=== PATIENT | female | born 1995 | race Caucasian/White ===

== ENCOUNTER 2022-07-20 10:08 | Outpatient (CLI) | payer BC, SELFPAY ==
[2022-07-20 12:29] LABS: Hepatitis B Surface Antigen* Negative (Negative)
[2022-07-20 12:37] LABS: HIV 1/2/P24 Combo Screen* Negative (Negative)
[2022-07-20 12:46] LABS: Hepatitis C Virus Antibody* Negative (Negative)
[2022-07-20 13:23] LABS: Chlamydia DNA Amplified* NOT DETECTED (No Detected); GC DNA Amplified* NOT DETECTED (No Detected)
[2022-07-21 10:38] LABS: Rapid Plasma Reagin (RPR) Non Reactive (Non Reactive)
[2022-07-21 14:12] LABS: Rubella Antibody IgG 35.9 IU/mL
== END 2022-07-20 10:09 | disposition home or self-care (01) ==
PROVIDERS: PCP Family Medicine; Visit Provider Advanced Practice Midwife
DX: Z34.91 Encounter for supervision of normal pregnancy, unspecified, first trimester (principal)
CPT/HCPCS: 76817; 84443; 86592; 86703; 86762; 86787; 86803; 86850; 86900; 86901; 87086; 87340; 87491; 87591

== ENCOUNTER 2022-09-16 15:08 | Outpatient (CLI) | payer BC, SELFPAY | END 2022-09-16 15:09 | disposition home or self-care (01) | PROVIDERS: PCP Family Medicine; Visit Provider Advanced Practice Midwife | DX: Z11.1 Encounter for screening for respiratory tuberculosis (principal); Z77.011 Contact with and (suspected) exposure to lead | CPT/HCPCS: 83655; 86480 ==

== ENCOUNTER 2022-10-14 11:35 | Inpatient (IN) | payer BC, SELFPAY ==
--- NOTE | 2022-10-14 08:45 | CRLHL7_ITS ---
For Patients: As a result of the Century Cures Act, medical imaging exams and procedure reports are released immediately into your electronic medical record. You may view this report before your referring provider. If you have questions, please contact your health care provider. INDICATION: Second trimester follow-up. COMPARISON: 07/20/2022 TECHNIQUE: Real time mejia scale imaging of the fetus was performed. FINDINGS: Intrauterine demise is present. Diffuse subcutaneous edema and cystic structures associated with head/thorax suggesting cystic hygromas, consider Roach syndrome although findings are nonspecific. Cervix is closed measuring 6.8 cm. Fetus is in breech position. No heart tones. Estimated weight 177 grams, less than 3rd percentile. Sonographic age is 17 weeks 2 days with due date calculation of 03/22/2023. The following biometric measurements were obtained: Biparietal diameter: 4.0 cm/18 weeks 0 days less than 30% Head circumference: 14.4 cm/17 weeks 4 days less than 30% Abdominal circumference: 11.6 cm/17 weeks 2 days less than 3rd% Femur length: 2.2 cm/16 weeks 3 days less than 3rd% The HC/AC ratio measures: 1.25 range (1.07-1.29) IMPRESSION: Second trimester demise. Dictated by Laz Blanca MD @ 10/14/2022 11:16:54 AM (Electronically Signed)
[2022-10-14 11:54] VITALS: BP 117/70; PULSE 64
[2022-10-14 12:00] VITALS: BMI 31.1
[2022-10-14 12:01] VITALS: TEMP 36.8
[2022-10-14] MEDS: LOPERAMIDE HCL 2 MG CAPSULE 4 MG PO (12:47)
[2022-10-14] MEDS: miSOPROStoL 200 MCG TABLET VAGINAL ×3 (12:48→20:45)
--- NOTE | 2022-10-14 13:24 | PM.OBHPLI ---
OB - H&P: HPI Labor/Induction History of Present Illness Time Seen by Provider: 12:00 Date Seen: 10/14/22 Chief Complaint: Emily is a 27 year old 2 para 1001 at 20.5 weeks gestation by LMP c/w 1st trimester u/s. She presented this morning to the clinic for her 20 week anatomy scan, at which time a demise was noted. Options reviewed for D & E vs IOL, and she and her partner opted for an IOL. Dr. Eduardo Easton also consulted at that time. Her partner Terrell and mother are at the bedside for support. Both she and Terrell would like any tests available done on Emily and the baby that might give them answers as to why this occurred. They did previously do a [id number], but without SCA testing. Her ultrasound report today is as follows: Intrauterine demise is present. Diffuse subcutaneous edema and cystic structures associated with head/thorax suggesting cystic hygromas, consider Roach syndrome although findings are nonspecific. Cervix is closed measuring 6.8 cm. Fetus is in breech position. No heart tones. Estimated weight 177 grams, less than 3rd percentile. Sonographic age is 17 weeks 2 days with due date calculation of 03/22/2023. IMPRESSION: Second trimester demise. OB Problem List: 1. Anxiety -currently stable on Lexapro 2. Hx of PP thyroiditis -TSH collected at [facility] 3. Exposure to lead during 1870's home renovation in early . -Labs drawn 09/16/22: negative for lead 4. ACL tear right leg, will require surgery to repair. Planned:? Planned ? Allergies: Denies? ? PrePregnancy weight: 155 lbs? ? ? SOCIAL? ? Education: doctorate? ? Work: PT ? ? 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 ? Lives with: Terrell, son? ? Pets: denies? ? Abuse: Denies past? ? Unable to assess current, partner present? ? Special Diet: Denies? ? Ok with a blood transfusion: yes? ? Culture or restorationism beliefs: denies? RISK FACTORS? ? Exercise Times/wk: cross fit 5 days week.? ? ? Depression/Anxiety: anxiety? ? Treatments Currently on Lexapro. ? ? Therapy Denies KEVIN: 0 PHQ 9: 0? ? Seat Belt Use: Routinely ? Smoking: Denies past/present? ? Alcohol/day: Denies while ? ? Caffeine: 1 cup a day ? ? Drug Use: Denies past/present? Planning to breastfeed: yes? Breastfed other children Yes, still at the time of her new ob visit. ? ? Complications with previous : denies? Viability u/s at NOB visit: Ultrasound #1: 8.3 weeks by LMP, 7.6 weeks by u/s? KOMAL: 02/26/23 by? LMP, c/w 1st trimester u/s? ? Chief complaint: Supervision of other normal , antepartum : 2 Para: 1 Indications for induction: intrauterine History of Present Dating criteria: based on LMP (Consistent w/ 1st trimester u/s) care: good care Ultrasounds: normal 1st trimester US and abnormal US findings Labs Blood type: A (+) positive Review of Systems Status of ROS: Reports: 10 or more systems reviewed and unremarkable except as noted in History and below Meds Home Medications and Allergies Home Medications Medication Instructions Recorded Confirmed Type calcium carbonate 600 mg calcium 600 mg PO QDAY 08/18/22 10/14/22 History (1,500 mg) tablet (Calcium) docosahexaenoic acid 200 mg 200 mg PO .QD 08/18/22 10/14/22 History capsule ( DHA) aspirin 81 mg chewable tablet 81 mg PO DAILY 10/14/22 10/14/22 History (Ryan Chewable Low Dose Aspirin) Allergies Allergy/AdvReac Type Severity Reaction Status Date / Time No Known Drug Allergies Allergy Verified 10/05/22 09:00 OB - H&P: Exam Physical Exam: Vital signs: Temp Pulse BP 98.2 F 64 117/70 10/14/22 12:01 10/14/22 11:54 10/14/22 11:54 Constitutional: Constitutional: no acute distress (Tearful at times r/t situation) and cooperative Routine HEENT Exam: Head: Present normocephalic Routine Neck Exam: Neck: Present full ROM Routine Respiratory Exam: Respiratory: Present CTA bilaterally Routine Cardiovascular Exam: Cardiovascular: RRR Routine Exam: External: Present normal external exam Perineum Description: Normal Detailed Labor and Delivery Exam: Patient Gravid: Yes Dilation (cm): 0 (fingertip) Effacement (%): 0 Cervix position: mid Consistency: medium Routine Back/Spine/Pelvis Exam: Back/Spine: full ROM Routine Skin Exam: Present intact, dry and warm Routine Neurological Exam: Present alert and oriented X3 Routine Psychiatric Exam: Present normal affect and normal thought process OB - Problem Based A/P Additional Plan (1) Stillbirth with antepartum : Status: Acute Plan Assessment: at 20.5 weeks by LMP c/w first trimester u/s demise, likely occurred around 17 weeks. A+ blood type Recent ACL tear in right leg Plan: Admit to L & D for IOL. Plan cytotec per demise protocol. Pt candidate for analgesia of choice. Planning epidural for pain management. Blood work, cultures and chromosome testing for Emily and fetus Requesting fetus to pathology for testing, returned for cremation or burial per pt preference. Conscious of positioning of right leg during delivery r/t recent injury. Delivery/Labor/Induction Plan Plan: induction Induction method: per misoprostol protocol (for demise)
[2022-10-14 14:03] LABS: Basophils Absolute Auto 0.01 K/uL (0.00-0.30); Basophils Percent Auto 0.1 % (0.0-3.0); Eosinophils Absolute Auto 0.02 K/uL (0.00-0.50); Eosinophils Percent Auto 0.2 % (0.0-7.0); Hemoglobin* 12.4 gm/dL (12.0-16.0); Immature Granulocytes Abs Auto 0.01 K/uL (0.00-0.30); Immature Granulocytes Pct Auto 0.1 %; Lymphocytes Percent Auto 19.3 % (20-44); Mean Corpuscular HGB Conc 34 gm/dL (32-36); Mean Corpuscular Hemoglobin 31 pg (26-34); Mean Corpuscular Volume 89 fL (80-100); Monocytes Percent Auto 4.7 % (0.0-11.0); Neutrophils Percent Auto 75.6 % (42.0-72.0); Platelet Count* 165 K/uL (140-440); RDW Coefficient of Variation % 12.3 % (11.5-15.5); Red Blood Count 4.06 m/uL (4.00-5.20); White Blood Count* 8.76 K/uL (4.50-11.00)
[2022-10-14 14:11] LABS: Slide Review Reflex No
[2022-10-14 14:59] LABS: Free T4 Free Thyroxine* 0.82 ng/dL (0.70-1.85)
[2022-10-14 15:00] LABS: SARS PCR* Negative SARS-CoV-2 (Negative)
[2022-10-14] MEDS: ACETAMINOPHEN 500 MG TABLET 1000 MG PO ×2 (15:55→20:49)
[2022-10-14 15:57] VITALS: BP 120/71; PULSE 72
[2022-10-14 16:19] LABS: Prothrombin Time 13.8 Seconds
[2022-10-14 16:20] LABS: Fibrinogen* 325 mg/dL (200-450); Partial Thromboplastin Time* 25 Seconds (23-33)
[2022-10-14 16:26] LABS: Amphetamine Screen Urine Negative (Negative); Barbiturate Screen Urine Negative (Negative); Benzodiazepines Screen Urine Negative (Negative); Cannabinoid Screen Urine Negative (Negative); Cocaine Screen Urine Negative (Negative); Methadone Screen Urine Negative (Negative); Methamphetamines Screen Urine Negative (Negative); Opiate Screen Urine Negative (Negative); Oxycodone Screen Urine Negative (Negative); Phencyclidine Screen Urine Negative (Negative); Tricyclic Antidepressant Urine Negative (Negative)
[2022-10-14 18:27] VITALS: BP 112/59; PULSE 77
[2022-10-14 20:49] VITALS: TEMP 36.6
[2022-10-14 21:14] VITALS: BP 121/62; PULSE 65
[2022-10-15] VITALS (53 sets, daily range): BP systolic 79–126; BP diastolic 41–75; PULSE 60–96; RESP 18; TEMP 36.8–37; O2SAT 96–99
[2022-10-15] MEDS: miSOPROStoL 200 MCG TABLET 400 MCG VAGINAL ×2 (01:16→05:05)
[2022-10-15] MEDS: ACETAMINOPHEN 500 MG TABLET 1000 MG PO (05:02)
--- NOTE | 2022-10-15 05:07 | PM.OBPNL ---
Subjective Time Seen by Provider: 05:08 Date Seen: 10/15/22 Narrative: Emily is coping well with mild ctx. She is also doing well mentally. Her mother has been at her bedside for support. Her partner also remains in the room, but is struggling with the situation. He was seen in the ER, but has returned and is now resting. Emily has als been able to rest between doses of cytotec. She does state this time she feels as though her abdomen is starting to move down and feels firmer lower. Denies any pressure to push. She is planning an epidural for pain management, but does not need it at this time. Objective Exam: VSS, afebrile General Appearance:? Calm, cooperative. No acute distress. ? Psychiatric Exam: Alert and oriented, appropriate affect Abdomen: Gravid Ctx: cramping for about an hour after each dose per pt SVE: deferred at this time. Noted to be 1 cm and long at 1 am. Membranes: Intact ? Vital Signs: Last Vital Signs Temp 98.6 F 10/15/22 01:17 Pulse 74 10/15/22 05:04 BP 104/59 L 10/15/22 05:04 Plan Plan: Assessment:?? 27 at 20.5 weeks gestation?by LMP, confirmed with 1st trimester u/s. likely occurred around 17.2 weeks per current u/s measurements. Patient is coping well with the cuurent situation and with the physical discomorts?? Labor type: Induced w/ cytotec? ? ? Plan:?? Continue with routine intrapartum cares as ordered.?? Continue with current dose of 400 mcg cytotec. Epidural for pain management when pt desires. Anticipate progress to vaginal delivery.
[2022-10-15] MEDS: LACTATED RINGERS 1000 ML 1,000 ML 999 ML IV (07:50)
[2022-10-15] MEDS: ROPIVACAINE 0.2% 100 ml 100 ML 10 MG EPIDURAL (08:28)
[2022-10-15] MEDS: LIDOCAINE 2% (PF) 5 ML VIAL EPIDURAL (08:28)
--- NOTE | 2022-10-15 08:37 | P.ANBPRC_ITS ---
[facility] Medical History (Updated 10/14/22 @ 13:55 by Angie Curran CNM) thyroiditis Spontaneous vaginal delivery (08/07/21) Surgical History History of anterior cruciate ligament surgery [place] teeth extracted Family History (Updated 07/20/22 @ 09:59 by Angie Curran CNM) Mother Thyroid disease Sister Denton's disease Social History Smoking Status: Never smoker Little interest or pleasure in doing things: not at all Feeling down, depressed, or hopeless: not at all Meds Home Medications and Allergies Home Medications Medication Instructions Recorded Confirmed Type calcium carbonate 600 mg calcium 600 mg PO QDAY 08/18/22 10/14/22 History (1,500 mg) tablet (Calcium) docosahexaenoic acid 200 mg 200 mg PO .QD 08/18/22 10/14/22 History capsule ( DHA) aspirin 81 mg chewable tablet 81 mg PO DAILY 10/14/22 10/14/22 History (Ryan Chewable Low Dose Aspirin) Allergies Allergy/AdvReac Type Severity Reaction Status Date / Time No Known Drug Allergies Allergy Verified 10/05/22 09:00 Results Labs Labs: Laboratory Results - last 24 hr 10/14/22 10/14/22 10/14/22 11:56 11:56 13:36 WBC RBC Hgb Hct MCV MCH MCHC RDW Coeff of Jagdeep Plt Count Neut % (Auto) Lymph % (Auto) [place] % (Auto) Eos % (Auto) Baso % (Auto) Neut # (Auto) Lymph # (Auto) [place] # (Auto) Eos # (Auto) Baso # (Auto) INR APTT Fibrinogen TSH 1.340 Free T4 0.82 Urine Opiates Screen Negative Ur Oxycodone Screen Negative Urine Methadone Screen Negative Ur Propoxyphene Screen Negative Ur Barbiturates Screen Negative U Tricyclic Antidepress Negative Ur Phencyclidine Scrn Negative Ur Amphetamines Screen Negative U Methamphetamines Scrn Negative U Benzodiazepines Scrn Negative Urine Cocaine Screen Negative U Marijuana (THC) Screen Negative SARS-CoV-2 (PCR) Negative SARS-CoV-2 Blood Type Antibody Screen 10/14/22 10/14/22 10/14/22 13:36 13:36 15:48 WBC 8.76 RBC 4.06 Hgb 12.4 Hct 36.0 MCV 89 MCH 31 MCHC 34 RDW Coeff of Jagdeep 12.3 Plt Count 165 Neut % (Auto) 75.6 H Lymph % (Auto) 19.3 L [place] % (Auto) 4.7 Eos % (Auto) 0.2 Baso % (Auto) 0.1 Neut # (Auto) 6.60 Lymph # (Auto) 1.70 [place] # (Auto) 0.40 Eos # (Auto) 0.02 Baso # (Auto) 0.01 INR 1.00 APTT 25 Fibrinogen 325 TSH Free T4 Urine Opiates Screen Ur Oxycodone Screen Urine Methadone Screen Ur Propoxyphene Screen Ur Barbiturates Screen U Tricyclic Antidepress Ur Phencyclidine Scrn Ur Amphetamines Screen U Methamphetamines Scrn U Benzodiazepines Scrn Urine Cocaine Screen U Marijuana (THC) Screen SARS-CoV-2 (PCR) Blood Type A Positive Antibody Screen NEGATIVE Vital Signs Vital Signs: Last Vital Signs Temp 98.5 F 10/15/22 05:02 Pulse 72 10/15/22 08:36 BP 105/57 L 10/15/22 08:36 Pulse Ox 98 10/15/22 08:33 Weight: 77.111 kg Height: 157.48 cm Anesthesia Procedures Epidural Insertion Patient Location: OB Start Time: 08:10 Stop Time: 08:40 Start Date: 10/15/22 Stop Date: 10/15/22 Reason for Block: procedure for pain Patient Position: sitting Performed By: Jean Carlos Jasmine Preanesthetic Checklist: IV checked, risks and benefits discussed, monitors and equipment checked, pre-op evaluation, timeout performed and anesthesia consent Prep: chlorhexidine gluconate Monitoring: blood pressure monitoring, continuous pulse oximetry and heart rate Approach: midline Vertebral Space: lumbar (1-5) Epidural Technique: MARY saline Needle Type: Tuohy needle Injection Technique: continuous catheter Needle gauge: 17 Needle Length (cm): 10 cm Needle Insertion Depth (cm): 5 Catheter Gauge: 19 Catheter Type: multi-orifice Catheter at skin depth (cm): 10 Test Dose Result: negative Events: other (pt became lighted headed at end of procedure, stated this happened with 1st epidural. Layed pt down stated she felt better. VSS normal. pt did not have increased HR or Blood on Aspiration During test dose)
[2022-10-15] MEDS: miSOPROStoL 200 MCG TABLET 400 MCG PO (09:29)
--- NOTE | 2022-10-15 09:50 | PM.OBPNL ---
Subjective Time Seen by Provider: 09:30 Date Seen: 10/15/22 Narrative: Emily is coping well, now comfortable with an epidural.? She is overall doing well mentally. ? Her mother and have been at her bedside for support.? Her is struggling with the situation but coping well currently. Requested by RN to assess as she thought she felt fetus in vaginal canal. Patient denies pressure or urge to push. Consents to vaginal exam. Objective Exam: General Appearance:? Calm, cooperative.? No acute distress. ? Psychiatric Exam:?Alert and oriented, appropriate affect Abdomen:?Gravid Ctx:?irregular, not felt by patient with epidural SVE:?Complete, fetus breech and body felt in vaginal canal. No descent with small push Membranes:?SROM, clear fluid at 0705 Vital Signs: Last Vital Signs Temp 98.5 F 10/15/22 05:02 Pulse 71 10/15/22 11:57 BP 111/56 L 10/15/22 11:57 Pulse Ox 98 10/15/22 09:13 Pelvic Exam Dilation (cm): 10 Plan Plan: Assessment:?? 27 at 20.5 weeks gestation?by LMP, confirmed with 1st trimester u/s.? likely occurred around 17.2 weeks per current u/s measurements. Patient is coping well wwith epidural Labor type: Induced w/ cytotec? Breech presentation ? Plan:?? Discussed pushing vs expectant management of delivery. Discussed risk of pushing due to position and size/ status of risks associated including head entrapment/decapitation. She strongly desires to hold baby. Plan for expectant management, proceed with next does of cytotec 400 mcg, orally. Continue with routine intrapartum cares as ordered.?? Epidural for pain management, continue until post delivery. Anticipate progress to vaginal delivery, plan to recheck in about 1 hour.
--- NOTE | 2022-10-15 12:33 | P.OBPRC_ITS ---
Procedure Delivery date: 10/15/22 Procedure Done: Global Events: Other (IUFD found at 20 weeks, measuring approximately 17 weeks; Lead Exposure) Intrapartal Events: Labor Induction Induction method: per misoprostol protocol Delivery monitor: none Route of delivery: Laceration description: None Anesthesia type: Epidural Narrative: The patient is a 27 year-old G2 now P1011 admitted on 10/14/2021 at 20 Weeks, 5 Days gestation for induction of labor for Demise diagnosed at her ultrasound yesterday. Fetus is measuring 17 2/7 weeks gestation. Her induction was managed with Cytotec, patient got an epidural early this morning and progressed normally. ? Labor Analgesia:? Epidural ? Pitocin:? No ? Labor onset:?0705 ? Complete:? 0930 am At 1151 a non-viable female delivered in breech presentation over intact perineum via spontaneous vaginal delivery with light maternal pushing efforts.?Cord was clamped and cut immediately.? was placed on maternal chest per her request. appeared edematous, skin was sloughing and scalp appeared to be not intact, no identifiable anomalies noted visually, however baby was likely for some time. No complications with delivery. At time of delivery placenta did not deliver. Expectant management of placenta, delivery occurred on the toilet. Placenta delivered spontaneously and complete at 1353. Difficulty to assess 3 vessel cord due to size, edematous in appearance. ? Mother was stable after delivery. Parents grieving appropriately. ? Lacerations:? Intact ? Blood loss: 25 mL. Blood loss measurement type: EBL ? Sponge and needles counts are correct. [place] Infant Infant Gender: Female presentation: rosalio breech Placental Delivery Description: Spontaneous A Gender: Female OB Vag Delivery Procedures Additional Procedures Procedure Details: demise
--- NOTE | 2022-10-15 17:25 | P.DS_ITS ---
DS: Providers Provider Date Seen: 10/15/22 Date of admission: 10/14/22 11:35 Primary care physician: Sondra Lancaster CNP Admitting Clinician: Angie Curran CNM Attending Physician on discharge: Mickey mcwilliams supervision by Emiliana Espino CNM DS: Diagnosis Discharge Diagnosis (1) Stillbirth with antepartum : Status: Acute (2) Spontaneous vaginal delivery: Status: Acute (3) care and examination immediately after delivery: Status: Acute Exam Const: Vital Signs, click to edit/add: Vital Signs - 24 hr 10/14/22 18:27 10/14/22 21:14 10/15/22 01:12 Temperature Pulse Rate 77 65 68 Pulse Rate [Blood Pressure Cuff] Respiratory Rate Blood Pressure 112/59 L 121/62 114/53 L Blood Pressure [Le ft Arm] Pulse Oximetry 10/15/22 05:04 10/15/22 08:12 10/15/22 08:13 Temperature Pulse Rate 74 82 Pulse Rate [Blood Pressure Cuff] Respiratory Rate Blood Pressure 104/59 L 119/70 Blood Pressure [Le ft Arm] Pulse Oximetry 99 10/15/22 08:18 10/15/22 08:22 10/15/22 08:23 Temperature Pulse Rate 61 Pulse Rate [Blood Pressure Cuff] Respiratory Rate Blood Pressure 87/46 L Blood Pressure [Le ft Arm] Pulse Oximetry 98 96 10/15/22 08:24 10/15/22 08:26 10/15/22 08:28 Temperature Pulse Rate 68 78 81 Pulse Rate [Blood Pressure Cuff] Respiratory Rate Blood Pressure 92/53 L 101/61 106/63 Blood Pressure [Le ft Arm] Pulse Oximetry 99 10/15/22 08:30 10/15/22 08:32 10/15/22 08:33 Temperature Pulse Rate 75 70 Pulse Rate [Blood Pressure Cuff] Respiratory Rate Blood Pressure 111/65 108/56 L Blood Pressure [Le ft Arm] Pulse Oximetry 98 10/15/22 08:34 10/15/22 08:36 10/15/22 08:38 Temperature Pulse Rate 71 72 72 Pulse Rate [Blood Pressure Cuff] Respiratory Rate Blood Pressure 104/56 L 105/57 L 104/56 L Blood Pressure [Le ft Arm] Pulse Oximetry 98 10/15/22 08:40 10/15/22 08:42 10/15/22 08:43 Temperature Pulse Rate 78 95 Pulse Rate [Blood Pressure Cuff] Respiratory Rate Blood Pressure 112/58 L 126/59 L Blood Pressure [Le ft Arm] Pulse Oximetry 98 10/15/22 08:44 10/15/22 08:46 10/15/22 08:48 Temperature Pulse Rate 85 79 70 Pulse Rate [Blood Pressure Cuff] Respiratory Rate Blood Pressure 124/72 118/59 L 106/59 L Blood Pressure [Le ft Arm] Pulse Oximetry 98 10/15/22 08:50 10/15/22 08:52 10/15/22 08:53 Temperature Pulse Rate 67 70 Pulse Rate [Blood Pressure Cuff] Respiratory Rate Blood Pressure 103/54 L 103/55 L Blood Pressure [Le ft Arm] Pulse Oximetry 97 10/15/22 08:54 10/15/22 08:56 10/15/22 08:58 Temperature Pulse Rate 70 70 73 Pulse Rate [Blood Pressure Cuff] Respiratory Rate Blood Pressure 113/58 L 109/56 L 107/57 L Blood Pressure [Le ft Arm] Pulse Oximetry 98 10/15/22 09:00 10/15/22 09:02 10/15/22 09:03 Temperature Pulse Rate 68 75 Pulse Rate [Blood Pressure Cuff] Respiratory Rate Blood Pressure 104/59 L 102/56 L Blood Pressure [Le ft Arm] Pulse Oximetry 98 10/15/22 09:04 10/15/22 09:08 10/15/22 09:13 Temperature Pulse Rate 71 Pulse Rate [Blood Pressure Cuff] Respiratory Rate Blood Pressure 106/57 L Blood Pressure [Le ft Arm] Pulse Oximetry 98 98 10/15/22 09:20 10/15/22 09:35 10/15/22 09:50 Temperature Pulse Rate 75 68 71 Pulse Rate [Blood Pressure Cuff] Respiratory Rate Blood Pressure 104/58 L 105/56 L 92/53 L Blood Pressure [Le ft Arm] Pulse Oximetry 10/15/22 10:05 10/15/22 10:20 10/15/22 10:35 Temperature Pulse Rate 73 73 73 Pulse Rate [Blood Pressure Cuff] Respiratory Rate Blood Pressure 82/47 L 83/49 L 94/53 L Blood Pressure [Le ft Arm] Pulse Oximetry 10/15/22 10:50 10/15/22 11:27 10/15/22 11:57 Temperature Pulse Rate 66 60 71 Pulse Rate [Blood Pressure Cuff] Respiratory Rate Blood Pressure 79/41 L 88/48 L 111/56 L Blood Pressure [Le ft Arm] Pulse Oximetry 10/15/22 13:27 10/15/22 15:48 10/14/22 20:49 Temperature 97.9 F Pulse Rate 71 73 Pulse Rate [Blood Pressure Cuff] Respiratory Rate Blood Pressure 108/61 122/75 Blood Pressure [Le ft Arm] Pulse Oximetry 10/15/22 01:17 10/15/22 05:02 10/15/22 12:11 Temperature 98.6 F 98.5 F 98.3 F Pulse Rate Pulse Rate [Blood Pressure Cuff] 68 Respiratory Rate 18 Blood Pressure Blood Pressure [Le ft Arm] 101/68 Pulse Oximetry 10/15/22 12:26 10/15/22 12:41 10/15/22 12:57 Temperature Pulse Rate Pulse Rate [Blood Pressure Cuff] 70 67 71 Respiratory Rate 18 18 18 Blood Pressure Blood Pressure [Le ft Arm] 110/62 98/68 104/56 L Pulse Oximetry 10/15/22 13:11 10/15/22 13:26 Temperature Pulse Rate Pulse Rate [Blood Pressure Cuff] 71 Respiratory Rate 18 18 Blood Pressure Blood Pressure [Le ft Arm] 108/46 L Pulse Oximetry Documenting provider has reviewed patient's vital signs: yes Common normals: no apparent distress, oriented x3, healthy appearing and alert HENMT: Common normals: normocephalic Head and scalp: normocephalic Eye: Common normals: PERRL Pupil: PERRL Neck & C-Spine: Common normals: full ROM and supple Chest: Common normals: inspection of chest normal Resp: Common normals: normal respiratory effort and clear to auscultation bilaterally Auscultation: clear to auscultation bilaterally Cardio: Common normals: regular rate and regular rhythm Rate: regular rate Rhythm: regular rhythm : OB/external & speculum: Yes perineal/vaginal laceration Laceration: intact Lochia: scant Back & Pelvis: Common normals: thoraco-lumbar ROM normal Extremity: Common normals: normal to inspection and full ROM Neuro: Common normals: oriented x3 Sensorium/orientation: alert Speech: speech normal Psych: Common normals: mental status grossly normal, thought process normal, speech normal and activity/motor behavior normal Speech: normal speech Mood and affect: sad Thought process: normal thought process Skin: Common normals: no rashes or lesions noted General skin exam: no rashes or lesions noted OB - DS: Summary Hospital Course Hospital Course: The patient is a 27 year old G 2 P 1011 at 20 5/7 weeks gestation that was admitted to the Center on 10/14/22 for IOL known IUFD diagnosed in clinic. She had an uncomplicated vaginal delivery. She delivered a non-viable female . the patient has done well. Grieving appropriately, has been holding infant and taking pictures, has family support present, here as well. Pt has received support from AP while here in the hospital. Bleeding appropriate, denies pain, no fever. No concerns, pt desires discharge this evening. Peripartum Data Infant delivery method: Vaginal Laceration description: None Gender: Female (stillborn) A Gender: Female Status at Discharge Functional status at discharge: independent ambulation Overall status at discharge: patient is progressing back to baseline Time Spent with Patient Time attestation: Total time spent providing and/or coordinating discharge services: Discharge Plan Discharge Disposition: Home, Self-Care Date of Admission: 10/14/22 11:35 Attending Provider on Discharge: Emiliana Espino Primary Care Provider: Sondra Lancaster Condition: Stable Anticipated Discharge Date/Time: 10/15/22 18:00 Discharge Medications: New acetaminophen 500 mg Tablet 1,000 mg PO Q6H Qty: 0 0RF ibuprofen 600 mg Tablet 600 mg PO Q6H PRNQty: 30 0RF Continued calcium carbonate [Calcium 600] 600 mg calcium (1,500 mg) tablet 600 mg PO QDAY DHA 200 mg capsule 200 mg PO .QD escitalopram oxalate 20 mg tablet See Rx Instructions .ROUTE .COMPLEX Qty: 90 0RF Dose Instruction: Take 1 tablet by mouth once daily Rx Instructions: Take 1 tablet by mouth once daily Discontinued aspirin [Ryan Chewable Aspirin] 81 mg tablet,chewable 81 mg PO DAILY Discharge Orders: Discharge Order (Routine); Ordered 10/15/22 Ordered By: Emiliana Espino Patient Education: OB Loss Additional Instructions: Discharge instructions were reviewed with the patient including signs and symptoms of infection and home going medications Nothing vaginally for 6 weeks: no tampons or intercourse 2-week visit: for follow up and screen for anxiety/depression. Activity Level: Activity as Tolerated Discharge Diet: Regular Follow Up Appointments: [facility] [Provider Group] Forms: [place] Info Instructions
[2022-10-16 00:21] LABS: Toxoplasma gondii Ab, IgM <3.0 AU/mL (<=7.9)
[2022-10-16 00:39] LABS: CMV Antibody IgG <0.20 U/mL; CMV Antibody IgM <8.0 AU/mL (<=29.9)
[2022-10-16 00:48] LABS: Toxoplasma gondii Ab, IgG <3.0 IU/mL
[2022-10-16 04:16] LABS: Parvovirus B19 Antibody IgG 11.86 IV (<=0.90); Parvovirus B19 Antibody IgM 0.27 IV (<=0.90)
[2022-10-17 02:11] LABS: B2Glycoprotein 1, IgG Antibody <10 SGU (<=20); B2Glycoprotein 1, IgM Antibody <10 SMU (<=20)
[2022-10-17 03:39] LABS: Cardiolipin Antibody IgA <10 APL (<=11); Cardiolipin Antibody IgG <10 GPL (<=14); Cardiolipin Antibody IgM <10 MPL (<=12)
[2022-10-19 11:08] LABS: FACV Specimen Whole Blood; Factor V Leiden (F5) Mutation Negative
[2022-10-21 17:44] LABS: Prothrombin Time 12.9 sec (12.0-15.5); dRVVT Screen 30 sec (33-44)
== END 2022-10-15 19:00 | disposition home or self-care (01) | DRG 560 ==
LOC: OB 11:39
PROVIDERS: Advanced Practice Midwife; Admitting Provider Advanced Practice Midwife; PCP Family Medicine; Visit Provider Advanced Practice Midwife
DX: O36.4XX0 Maternal care for intrauterine death, not applicable or unspecified (principal); O32.1XX0 Maternal care for breech presentation, not applicable or unspecified; F41.9 Anxiety disorder, unspecified; Z3A.20 20 weeks gestation of pregnancy; Z37.1 Single stillbirth
CPT/HCPCS: 01967; 36415; 59200; 76815; 80306; 81229; 81241; 81265; 84439; 84443; 85025; 85384; 85460; 85610; 85613; 85730; 86146; 86147; 86317; 86644; 86645; 86747; 86778; 86850; 86900; 86901; 87070; 87186; 87635; 88184; 88230; 88233; 88262; 88305; 99213; A9270; J2795; J7120

== ENCOUNTER 2022-11-12 07:01 | Day surgery (SDC) | payer BC, SELFPAY ==
[2022-11-12] VITALS (15 sets, daily range): BP systolic 91–108; BP diastolic 47–75; PULSE 48–69; RESP 12–16; TEMP 36.2–36.6; O2SAT 98–100; BMI 28.5
[2022-11-12 07:31] LABS: Ur HCG Qualitative* Negative (Negative)
[2022-11-12] MEDS: LACTATED RINGERS 1000 ML 1,000 ML 100 ML IV (07:40)
[2022-11-12] MEDS: ETHYL CHLORIDE 1 APPLICATION 1 APPLIC TOPICAL (07:40)
[2022-11-12] MEDS: CELECOXIB 200 MG CAPSULE PO (07:45)
[2022-11-12] MEDS: OXYCODONE (CR) 10 MG TAB.ER.12H PO (07:45)
[2022-11-12] MEDS: SODIUM CHLORIDE 0.9 % (FLUSH) 10 ML SYRINGE IVF (07:45)
[2022-11-12] MEDS: ACETAMINOPHEN 500 MG TABLET 1000 MG PO (07:45)
--- NOTE | 2022-11-12 07:53 | SUR.PREOP ---
home covid test negative
[2022-11-12] MEDS: fentaNYL 100 MCG/2 ML inj IVP (08:00)
[2022-11-12] MEDS: MIDAZOLAM HCL 1 MG/ML inj IVP (08:00)
--- NOTE | 2022-11-12 08:07 | SUR.PREOP ---
TIME?OUT:?0755, right knee PT/RN/MDA?VERIFICATION?OF?SURGICAL?SITE,?PROCEDURE,?AND?CONSENT OBTAINED?PRIOR?TO?INVASIVE?PROCEDURE.
[2022-11-12] MEDS: CEFAZOLIN 2 GM INJ IVP (08:40)
--- NOTE | 2022-11-12 10:56 | W.ANESCHARGE ---
Anesthesia Charges Start Date/Time Anesthesia Start Date: 11/12/22 Anesthesia Start Time: 08:31 Stop Date/Time Anesthesia Stop Date: 11/12/22 Anesthesia Stop Time: 11:08
--- NOTE | 2022-11-12 10:56 | W.PM.NB ---
Nerve Block Nerve Block Time Seen by Provider: 08:05 Date Seen: 11/12/22 Type of block requested by surgeon for post-operative analgesia: popliteal Side: right Time out performed: Yes Verification of patient name: Yes Verification of date of : Yes Site marking: site marked Name of person performing procedure: Brown Continuous monitoring Was continuous monitoring of O2 sat, B/P, training project manager, recorded every 15 minutes?: Yes Procedure Checklist: sterile prep, needles and gloves Ultrasound guided. Images saved: Yes Medications given in 5ml increments after negative aspiration: Ropivicaine %: 0.5 mL: 20 Needle gauge: 22 Patient tolerated procedure well: Yes Additional comments: Needle noted adjacent to nerve Block Charges Block Charge (with Pro Fee): Sciatic Nerve Use of Ultrasound Machine for Block: Yes- US Guidance/pain block
--- NOTE | 2022-11-12 10:57 | W.PM.NB ---
Nerve Block Nerve Block Time Seen by Provider: 08:05 Date Seen: 11/12/22 Type of block requested by surgeon for post-operative analgesia: femoral and adductor canal Side: right Time out performed: Yes Verification of patient name: Yes Verification of date of : Yes Site marking: site marked Name of person performing procedure: Brown Continuous monitoring Was continuous monitoring of O2 sat, B/P, ekg monitor tech, recorded every 15 minutes?: Yes Procedure Checklist: sterile prep, needles and gloves Ultrasound guided. Images saved: Yes Medications given in 5ml increments after negative aspiration: Ropivicaine %: 0.5 mL: 20 Needle gauge: 20 Decadron (mg): 10 Precedex (mcg): 25 Patient tolerated procedure well: Yes Additional comments: Needle noted adjacent to nerve Block Charges Block Charge (with Pro Fee): Femoral Nerve Use of Ultrasound Machine for Block: Yes- US Guidance/pain block
--- NOTE | 2022-11-12 11:16 | W.ANESCHARGE ---
Anesthesia Charges Start Date/Time Anesthesia Start Date: 11/12/22 Anesthesia Start Time: 08:31 Stop Date/Time Anesthesia Stop Date: 11/12/22 Anesthesia Stop Time: 11:08
--- NOTE | 2022-11-12 12:03 | PM.ORPRC ---
Procedure Note Date of procedure: 11/12/22 Procedure: PREOPERATIVE DIAGNOSIS: Right knee ACL tear, medial meniscus tear POSTOPERATIVE DIAGNOSIS: Right knee ACL tear, medial meniscus tear NAME OF OPERATION: Right knee endoscopic ACL reconstruction using patellar tendon autograft SURGEON: Asael Nicholas MD CHIP BIN OPERATOR: Smiley uNno PA-C, MOSES Poon ANESTHESIA: Spinal ESTIMATED BLOOD LOSS: 20 mL COMPLICATIONS: None SPECIMENS: None DRAINS: None PREOPERATIVE ANTIBIOTICS: Ancef 2 grams INDICATIONS: The patient is a 27-year-old female with a history of right knee injury consisting of the above diagnoses. Operative intervention was offered. The risks, benefits and expected outcomes were discussed in detail. These included but were not limited to: Infection, bleeding, injury to blood vessel or nerve, venous thromboembolism. All questions were answered to their satisfaction. Use of an special education teaching assistant was necessary throughout the case for patient positioning and safety, soft tissue retraction and closure. PROCEDURE: A femoral nerve and popliteal block were placed by Anesthesia. Spinal anesthesia was administered. The patient was placed supine on the operating room table. The right lower extremity was prepped and draped in the usual sterile fashion. The limb was exsanguinated with the Andi bandage. The pneumatic tourniquet was inflated to 300 mmHg. A standard anterolateral portal was established. The arthroscope was introduced. The working portal was established anteromedially. Diagnostic arthroscopy was performed with findings as follows: The suprapatellar pouch is normal. Articular surface on the patella is normal. Articular surface on the trochlea is normal. The medial gutter is normal. The medial compartment shows normal articular cartilage on the medial femoral condyle and medial tibial plateau. The medial meniscus appears to be fully healed. The root is intact and stable to probing. The notch shows the ACL to be completely torn. The lateral compartment shows normal articular cartilage on the lateral femoral condyle and lateral tibial plateau. The lateral meniscus is normal. The lateral gutter is normal. Attention was then turned to the graft harvest. A longitudinal incision was made just medial to midline over the patellar tendon. Subcutaneous dissection was sharply taken through the peritenon which was carefully elevated medially and laterally. The special education teaching assistant retracted the soft tissues to protect the patellar tendon. The central 10 mm of the patellar tendon with a 10 x 20 mm bone block from the patella and a 10 x 25 mm bone block from the tibia was harvested with the saw and osteotomes. It was taken to the back table for preparation by the special education teaching assistant. The arthroscope was reintroduced into the knee. The ACL stump was debrided with the shaver. The notchplasty was performed with the bur. The ctto-yan-wca position was identified. The knee was placed in hyperflexion by the special education teaching assistant and the 6 mm vtva-bqz-qiy guide was placed through the anteromedial portal. The Beath pin was drilled out the lateral thigh. The 10 mm low-profile Reamer was used to a depth of 25 mm. A loop of suture was left in the femoral tunnel. Bone debris was evacuated with the shaver. Attention then turned to the tibial tunnel. The tibial guide was placed in the center of the ACL tibial footprint. The guide pin was drilled the coring Reamer was used. This autograft bone was used to back fill the patellar and tibial donor sites. The ACL graft was pulled into the knee by the special education teaching assistant, using our previously placed suture and was placed in the femoral socket. The tap was used and a 7 x 20 mm BioComposite interference screw was used on the femoral side. This provided excellent fixation. We then tensioned the graft and cycled the knee. The tap was used on the tibial side and a 8 x 20 mm BioComposite interference screw was placed on the tibial side. This has excellent purchase as well. The graft was then inspected. It was found to be under physiologic tension. There is no roof impingement. Arthroscopic Sabrina's is a solid grade 1 with a firm endpoint. The patellar tendon was closed with a running 0 Vicryl suture. The special education teaching assistant closed the subcutaneous tissues with a 2-0 Vicryl and a running 3-0 Monocryl. Glue was used to seal the skin. A dry dressing Paul stocking and T scope brace were applied by the special education teaching assistant. The tourniquet was released. Sponge and needle counts were correct x 2. The patient tolerated the procedure well. There were no apparent complications. They were carefully transferred to the hospital bed and taken to the postanesthesia care unit in satisfactory condition. PLAN: The patient will be discharged to home. They may weightbear as tolerates. Range of motion will be unrestricted. They will follow up in physical therapy in 48-72 hours for wound check and dressing change. They will follow up in the office in 2 weeks with a supine AP and lateral view of the knee prior to being seen.
== END 2022-11-12 13:34 | disposition home or self-care (01) ==
PROVIDERS: Anesthesiology; PCP Family Medicine; Visit Provider Orthopaedic Surgery
PROC: (CPT 29888; principal; 2022-11-12 08:30)
DX: S83.512A Sprain of anterior cruciate ligament of left knee, initial encounter (principal)
CPT/HCPCS: 29888; 01400; 76942; 81025; A9270; C1713; J0690; J1100; J1200; J2250; J2405; J2704; J2795; J3010; J3475; J3490; J7120; L1833

== ENCOUNTER 2023-04-05 08:20 | Outpatient (CLI) | payer BC, SELFPAY | END 2023-04-05 08:21 | disposition home or self-care (01) | LOC: NFLDREF 11:04 | PROVIDERS: PCP Family Medicine; Referring Provider Family Medicine; Visit Provider Advanced Practice Midwife | DX: Z34.90 Encounter for supervision of normal pregnancy, unspecified, unspecified trimester (principal) | CPT/HCPCS: 84702 ==

== ENCOUNTER 2023-04-07 08:05 | Outpatient (CLI) | payer BC, SELFPAY | END 2023-04-07 08:06 | disposition home or self-care (01) | LOC: NFLDREF 11:45 | PROVIDERS: PCP Family Medicine; Referring Provider Family Medicine; Visit Provider Advanced Practice Midwife | DX: Z34.90 Encounter for supervision of normal pregnancy, unspecified, unspecified trimester (principal) | CPT/HCPCS: 84702 ==

== ENCOUNTER 2023-05-04 07:55 | Outpatient (CLI) | payer BC, SELFPAY ==
--- NOTE | 2023-05-04 08:15 | CRLHL7_ITS ---
For Patients: As a result of the Century Cures Act, medical imaging exams and procedure reports are released immediately into your electronic medical record. You may view this report before your referring provider. If you have questions, please contact your health care provider. INDICATION: First trimester scan, establish dates. COMPARISON: None. TECHNIQUE: Real-time mejia-scale imaging of the pelvis was performed. FINDINGS: Sonographic imaging demonstrates a single living intrauterine gestation. The embryo demonstrates a regular cardiac rate measuring 166 beats per minute. The embryo`s crown-rump length measurement of 2.5 cm corresponds to a gestational age of 9 weeks 1 day with a sonographic due date of 12/06/2023. There is a normal-appearing yolk sac. There are no gross abnormalities noted within the embryo at this early state of development. The gestational sac has a normal appearance. There is no evidence of a perigestational hemorrhage. The amount of fluid within the sac appears appropriate for gestational age. The cervix is closed. The myometrium appears normal. The ovaries are of normal size. Corpus luteal cyst left ovary. There are no suspicious fluid collections noted in the cul-de-sac. IMPRESSION: Normal first trimester OB ultrasound exam. Gestational age calculated at 9 weeks 1 day with a sonographic due date of 12/06/2023. Dictated by Laz Blanca MD @ 05/04/2023 10:13:43 AM (Electronically Signed)
== END 2023-05-04 07:56 | disposition home or self-care (01) ==
LOC: US 07:56
PROVIDERS: PCP Family Medicine; Visit Provider Advanced Practice Midwife
DX: Z34.91 Encounter for supervision of normal pregnancy, unspecified, first trimester (principal); Z3A.09 9 weeks gestation of pregnancy
CPT/HCPCS: 76817; 86703; 86803; 86850; 87086; 87340

== ENCOUNTER 2023-05-04 08:43 | Outpatient (CLI) | payer BC, SELFPAY | END 2023-05-04 08:44 | disposition home or self-care (01) | PROVIDERS: PCP Family Medicine; Visit Provider Advanced Practice Midwife | DX: Z34.91 Encounter for supervision of normal pregnancy, unspecified, first trimester (principal); Z3A.09 9 weeks gestation of pregnancy | CPT/HCPCS: 86592; 86703; 86762; 86787; 86803; 86850; 87086; 87340 ==

== ENCOUNTER 2023-07-01 09:21 | Outpatient (CLI) | payer BC, SELFPAY | END 2023-07-01 09:22 | disposition home or self-care (01) | LOC: NFLDREF 09:22 | PROVIDERS: PCP Family Medicine; Visit Provider Advanced Practice Midwife | DX: Z34.92 Encounter for supervision of normal pregnancy, unspecified, second trimester (principal); Z3A.17 17 weeks gestation of pregnancy | CPT/HCPCS: 84443 ==

== ENCOUNTER 2023-09-17 10:47 | Outpatient (CLI) | payer BC, SELFPAY | END 2023-09-17 10:48 | disposition home or self-care (01) | LOC: NFLDREF 09-19 05:18 | PROVIDERS: PCP Family Medicine; Referring Provider Family Medicine; Visit Provider Advanced Practice Midwife | DX: Z34.91 Encounter for supervision of normal pregnancy, unspecified, first trimester (principal) | CPT/HCPCS: 86592 ==

== ENCOUNTER 2023-10-28 09:24 | Outpatient (CLI) | payer BC, SELFPAY | END 2023-10-28 09:25 | disposition home or self-care (01) | PROVIDERS: PCP Family Medicine; Visit Provider Advanced Practice Midwife | DX: O90.5 Postpartum thyroiditis (principal); Z77.011 Contact with and (suspected) exposure to lead | CPT/HCPCS: 83655; 84443 ==

== ENCOUNTER 2023-11-10 09:22 | Outpatient (CLI) | payer BC, SELFPAY ==
[2023-11-11 13:47] LABS: Strep B DNA Probe Positive (Negative)
[2023-11-11 14:03] LABS: Strep B Susceptibility Needed? No
== END 2023-11-10 09:23 | disposition home or self-care (01) ==
PROVIDERS: PCP Family Medicine; Visit Provider Registered Nurse
DX: Z34.83 Encounter for supervision of other normal pregnancy, third trimester (principal)
CPT/HCPCS: 87081; 87653

== ENCOUNTER 2023-12-04 18:33 | Inpatient (IN) | payer BC, SELFPAY ==
[2023-12-04] VITALS (11 sets, daily range): BP systolic 99–205; BP diastolic 52–146; PULSE 58–196; RESP 20; TEMP 36.4–36.7; O2SAT 96; BMI 36.8
[2023-12-04] MEDS: AMPICILLIN 2 GM in 0.9 % SODIUM CHLORIDE Mini-bag 100 ML IVPB (18:56)
[2023-12-04] MEDS: LACTATED RINGERS 1000 ML 1,000 ML 125 ML IV (18:58)
[2023-12-04 19:08] LABS: Eosinophils Absolute Auto 0.02 K/uL (0.00-0.50); Eosinophils Percent Auto 0.3 % (0.0-7.0); Immature Granulocytes Abs Auto 0.02 K/uL (0.00-0.30); Immature Granulocytes Pct Auto 0.3 %; Lymphocytes Absolute Auto 1.56 K/uL (0.90-2.90); Lymphocytes Percent Auto 24.7 % (20-44); Mean Corpuscular HGB Conc 34 gm/dL (32-36); Mean Corpuscular Hemoglobin 31 pg (26-34); Mean Corpuscular Volume 91 fL (80-100); Monocytes Percent Auto 10.3 % (0.0-11.0); Neutrophils Absolute Auto 4.07 K/uL (1.7-7.0); Neutrophils Percent Auto 64.4 % (42.0-72.0); Platelet Count* 145 K/uL (140-440); RDW Coefficient of Variation % 12.2 % (11.5-15.5); Red Blood Count 3.86 m/uL (4.00-5.20); White Blood Count* 6.32 K/uL (4.50-11.00)
[2023-12-04 19:12] LABS: Slide Review Reflex No
--- NOTE | 2023-12-04 19:40 | P.LDBA_ITS ---
Documented by User: Diego Barbosa 12/04/23 20:12 Subjective History of Present Illness Narrative: Patient is being admitted to Labor and Delivery for spontaneous onset of labor. She is a 28 year old at weeks gestation. She started having irregular yahir last night. At 5 pm today her contractions started getting closer and more painful. Her course is complicated by Anxiety, shingles in and hx loss at 17 weeks. Her full history and physical was dictated by Carmen Orourke CNM on 11/19/23 see this for details. GBS positive. She plans on having waterbirth. She has her partner, mother and dolly operator at bedside for labor support. Specific Issues/Plans H&P done by Carmen Orourke CNM on 11/19/23 1. Hx of a loss at 17 wks, noted at 20 wk anatomy scan. Baby noted to have Turners -[id number] w/ SCA testing done at [facility] -Aware she can be seen for increased visits if needed for FHTs for reassurance -Level II w/ MPP: WNL, echo WNL. No further follow up needed 2. Anxiety -Currently stable on 20 mg lexapro. Increased to 30 mg at 34 wks -has been seeing a grief counselor. 3. Hx of PP thyroiditis -TSH done at 17 weeks: 1.38 4. Covid positive 08/01/23. Out of quarantine 08/12 5. Shingles infection in resolved at 37 wks 6. GBS POSITIVE Recommend antibiotics in labor Flu Vaccine: 07/01/23 Covid: Tdap: 09/30/23 RSV declines OB - Problem Based A/P Additional Plan (1) Pain during labor: Status: Acute (2) 39 weeks gestation of : Status: Acute (3) History of loss: Problem details: at 17.1 weeks gestation Status: Acute Plan ASSESSMENT:? 28 yr G 3 P1 at 39.3 weeks gestation? complicated by:?Anxiety, Shingles in , hx of loss at 17 wk Labor type: Spontaneous, Active labor? Category 1 Labor complicated by: n/a ? GBS:positive ? PLAN:? 1. Routine intrapartum cares as ordered. Continue with expectant management? 2. Monitoring per policy, intermittent 3. Planning unmedicated . Desires water . Consent signed. Hep C negative. Candidate for analgesia of choice.?? 4. Patient encouraged to reposition and ambulate to promote physiologic labor and .? 5. GBS prophylaxis initiated for GBS positive status. Will treat with antibiotics per protocol 6. Anticipate ? Delivery/Labor/Induction Plan Plan: expectant management OB Result Labs Blood Type: A (+) positive OB Exam Physical Exam Vital signs: Pulse BP 58 L 121/79 12/04/23 19:36 12/04/23 19:36 Narrative: Vitals Reviewed Constitutional:? Alert and oriented x3 HEENT:? Normocephalic, atraumatic Neck:? Supple Lungs:? Clear to auscultation bilaterally Heart:? Regular rate and rhythm, no murmur, rub or gallop Abdomen:? Soft, nontender, and gravid. Vertex by Bret's, confirmed with cervical exam. Extremities:? No edema or erythema Cervix: 6 cm/80%/0 station per RN NST: 130 bpm/Moderate variability/accelerations/ no decelerations/3-4 contractions Detailed Labor and Delivery Exam Patient Gravid: Yes Documented by User: Emiliana Espino CNM 12/04/23 21:02 Subjective History of Present Illness Narrative: Patient is being admitted to Labor and Delivery for spontaneous onset of labor. She is a 28 year old at 39.5 weeks gestation. She started having irregular yahir last night. At 5 pm today her contractions started getting closer and more painful. Her course is complicated by Anxiety, shingles in and hx loss at 17 weeks. Her full history and physical was dictated by Carmen Orourke CNM on 11/19/23 see this for details. GBS positive. She plans on having waterbirth. She has her partner, mother and dolly operator at bedside for labor support. Specific Issues/Plans H&P done by Carmen Orourke CNM on 11/19/23 1. Hx of a loss at 17 wks, noted at 20 wk anatomy scan. Baby noted to have Turners -[id number] w/ SCA testing done at [facility] -Aware she can be seen for increased visits if needed for FHTs for reassurance -Level II w/ MPP: WNL, echo WNL. No further follow up needed 2. Anxiety -Currently stable on 20 mg lexapro. Increased to 30 mg at 34 wks -has been seeing a grief counselor. 3. Hx of PP thyroiditis -TSH done at 17 weeks: 1.38 4. Covid positive 08/01/23. Out of quarantine 08/12 5. Shingles infection in resolved at 37 wks 6. GBS POSITIVE Recommend antibiotics in labor Flu Vaccine: 07/01/23 Covid: Tdap: 09/30/23 RSV declines OB - Problem Based A/P Additional Plan (1) Pain during labor: Status: Acute (2) 39 weeks gestation of : Status: Acute (3) History of loss: Problem details: at 17.1 weeks gestation Status: Acute Plan ASSESSMENT:? 28 yr G 3 P1 at 39.3 weeks gestation? complicated by:?Anxiety, Shingles in , hx of loss at 17 wk Labor type: Spontaneous, Active labor? Category 1 Labor complicated by: n/a ? GBS:positive ? PLAN:? 1. Routine intrapartum cares as ordered. Continue with expectant management? 2. Monitoring per policy, intermittent 3. Planning unmedicated . Desires water . Consent signed. Hep C negative. Candidate for analgesia of choice.?? 4. Patient encouraged to reposition and ambulate to promote physiologic labor and .? 5. GBS prophylaxis initiated for GBS positive status. Will treat with antibiotics per protocol 6. Anticipate ? I,?Emiliana Espino APRN, CNKei, was present for visit and have reviewed and agree with documentation by the Certified Nurse Midwifery Student. OB Exam Physical Exam Narrative: Vitals Reviewed Constitutional:? Alert and oriented x3 HEENT:? Normocephalic, atraumatic Neck:? Supple Lungs:? Clear to auscultation bilaterally Heart:? Regular rate and rhythm, no murmur, rub or gallop Abdomen:? Soft, nontender, and gravid. Vertex by Bret's, confirmed with cervical exam. Extremities:? No edema or erythema Cervix: 6 cm/80%/0 station per RN NST: 130 bpm/Moderate variability/accelerations/no decelerations/3-4 contractions
[2023-12-04] MEDS: ONDANSETRON 2 MG/ML inj 4 MG IV (21:20)
[2023-12-04] MEDS: SODIUM CHLORIDE 0.9 % (FLUSH) 10 ML SYRINGE IVF (21:22)
[2023-12-04] MEDS: OXYTOCIN 10 UNIT/ML INJ IM (22:16)
[2023-12-04] MEDS: IBUPROFEN 600 MG TABLET PO (22:20)
[2023-12-04] MEDS: lidocaine HCL 2 % JELLY (TOP) STERILE 6 ML TOPICAL (22:32)
[2023-12-04] MEDS: LIDOCAINE 1 % PF 30 ML INJECTION (22:32)
--- NOTE | 2023-12-04 23:04 | W.PM.OBVAGDE ---
Documented by User: Diego Barbosa 12/05/23 00:01 OB Procedure Vag Delivery Mother Details Mother Details: The patient is a 28 year-old, 3, Para 1, admitted on 12/04/23 at 39.5 wks gestation. : 3 Para: 2 Weeks Gestation: 39.5 Admission Date: 12/04/23 Additional Details Amniotic Membrane Status: SROM Amniotic Membrane Rupture Date: 12/04/23 Amniotic Membrane Rupture Time: 21:50 Amniotic Membrane Fluid Description: Meconium Stained Analgesia/Anesthesia Type: Nitrous Oxide Waterbirth: Yes Pitcoin: No Intrapartal Events: None Labor Onset: 18:25 Complete: 21:43 Pushin:43 Heart: heart tones during second stage were reassuring by doppler Delivery Details Delivery Date: 12/04/23 Delivery Time: 21:59 Route of delivery: Gender: Female Infant Viability: Alive; Heart Rate Present Position at Delivery: OA Delivery Details: Patient was admitted for spontaneous onset of labor and progressed normally with no augmentation. She SROM with light meconium @ 2150. She labored well in the tub and had a waterbirth. She was complete and started spontaneously pushing at 2143. of a viable female in kneeling position at 2159. Vertex delivered OA. No nuchal cord or shoulder dystocia was identified. Body delivered easily and without incident. Infant passed to mothers abdomen with a vigorous cry. Cord was clamped and cut at > 5 minutes. APGARS were 7 at one minute and 8 at five minutes respectively. Mouth was bulb suctioned. Intact placenta with a 3 vessel cord delivered spontaneously at 2223. Placenta was sent to pathology for hx of loss at 17 wks. Fundus firm. Bilateral periureteral and 1st degree perineal lacerations were identified. Repaired left periureteral laceration with 4.0 Vicryl in typical fashion.The right Periureteral laceration was smaller and not bleeding, hence not repaired. The 1st Perineal laceration was also not repaired due to good hemostasis. QBL 200 cc and EBL 200. Mother and baby stable; mother plans to breastfeed. Infant weight pending. GBS positive and not fully treated. 1 Minute Interval Total Score: 7 5 Minute Interval Total Score: 8 Additional Details Shoulder Dystocia: No Placenta Delivery Time: 22:23 Placental Delivery Description: Spontaneous Delivery repair: Vicryl Procedure Done: Global Blood Loss: 400 Laceration: Periurethral - 1st Degree (1st degree perineal laceration.) Episiotomy Description: None Blood Loss Measurement Type: QBL (QBL =200. HMS=193) Bakri Used: No Sponge/Need Count Correct: Yes Cord Vessel Description: 3 Vessels Event Summary Status: Mother and infant were stable after delivery. Disposition: floor Documented by User: Emiliana Espino CNM 12/05/23 00:57 OB Procedure Vag Delivery Additional Details Heart: heart tones during second stage were reassuring by doppler with intermittent auscultation. Delivery Details Delivery Details: Patient was admitted for spontaneous onset of labor and progressed normally with no augmentation. She SROM with light meconium @ 2150. She labored well in the tub and had a waterbirth. She was complete and started spontaneously pushing at 2143. of a viable female in kneeling position at 2159. Vertex delivered OA. No nuchal cord or shoulder dystocia was identified. Body delivered easily and without incident. Infant passed to mothers abdomen with a vigorous cry. Cord was clamped and cut at > 5 minutes. APGARS were 7 at one minute and 8 at five minutes respectively. Mouth was bulb suctioned. Intact placenta with a 3 vessel cord delivered spontaneously at 2223. Placenta was sent to pathology for hx of loss at 17 wks. Fundus firm. Bilateral periureteral and 1st degree perineal lacerations were identified. Repaired left periureteral laceration with 4.0 Vicryl in typical fashion.The right Periureteral laceration was smaller and not bleeding, hence not repaired. The 1st Perineal laceration was also not repaired due to good hemostasis. QBL 200 cc and EBL 200. Mother and baby stable; mother plans to breastfeed. weight pending. GBS positive and not adequately treated. I,?Emiliana Espino APRN, CNM, was present for visit and have reviewed and agree with documentation by the Certified Nurse Midwifery Student. Additional Details Laceration: Periurethral - 1st Degree (& 1st degree perineal laceration.)
[2023-12-05] VITALS (8 sets, daily range): BP systolic 106–130; BP diastolic 55–83; PULSE 64–184; RESP 16; TEMP 36.6–37.2; O2SAT 96
[2023-12-05] MEDS: DOCUSATE SODIUM 100 MG CAPSULE PO (08:42)
[2023-12-05] MEDS: ESCITALOPRAM 10 MG TABLET PO (09:16)
[2023-12-05] MEDS: ESCITALOPRAM 20 MG TABLET PO (09:17)
--- NOTE | 2023-12-05 10:33 | P.OBPN_ITS ---
OB - PN:Subj Subjective Date Seen: 12/05/23 Narrative: Emily is a 28 y.o. who was admitted to L & D for spontaneous onset of labor. ?She had an uncomplicated NVD.?The patient feels well. ?The pain is well controlled with current medications. ?She has no new complaints. ?She is breast feeding and reports things are going well.? the patient has done well.? Vitals have been stable.? She has remained afebrile.? Has a good appetite, is tolerating a general diet. ?She is voiding without difficulty.? She is passing gas and has not had a bowel movement.? She is ambulating and denies any dizziness.? Has Small amount of rubra lochia. OB - PN: Obj Exam Physical Exam: Vital signs: Temp Pulse Resp BP Pulse Ox O2 Del Method 98.9 F 64 16 115/71 96 Room Air 12/05/23 08:35 12/05/23 08:35 12/05/23 08:35 12/05/23 08:35 12/05/23 08:35 12/05/23 08:35 Narrative: GENERAL APPEARANCE:? normal affect, alert, no distress MOOD:? appropriate CHEST:? clear to auscultation HEART:? regular rate and rhythm ABDOMEN:? soft, non-tender the uterine fundus is At Umbilicus, Midline and is appropriate for the stage of recovery. PERINEUM:? mild edema of the perineum. Periurethral lacerations healing well. EXTREMITIES:? normal and no edema OB - PN: Obj Data Labs Labs: Laboratory Results - last 24 hr 12/04/23 18:55 WBC 6.32 RBC 3.86 L Hgb 12.0 Hct 35.0 MCV 91 MCH 31 MCHC 34 RDW Coeff of Jagdeep 12.2 Plt Count 145 Neut % (Auto) 64.4 Lymph % (Auto) 24.7 Hooker % (Auto) 10.3 Eos % (Auto) 0.3 Baso % (Auto) 0.0 Neut # (Auto) 4.07 Lymph # (Auto) 1.56 Hooker # (Auto) 0.70 Eos # (Auto) 0.02 Baso # (Auto) 0.00 Abs Immat Gran (auto) 0.02 Imm/Tot Granulo (auto) 0.3 Blood Type A Positive Antibody Screen NEGATIVE OB - PN: A/P Delivery Assessment and Plan (1) care and examination immediately after delivery: Status: Acute (2) Lactating mother: Status: Acute Plan day: 1 Plan: routine care Comments: Routine care Lactating mother, may see if desired. Anticipate discharge tomorrow.
[2023-12-06] MEDS: IBUPROFEN 600 MG TABLET PO (06:32)
[2023-12-06 07:38] VITALS: BP 107/71; PULSE 64; RESP 18; TEMP 36.9; O2SAT 97
[2023-12-06] MEDS: ESCITALOPRAM 20 MG TABLET PO (07:39)
[2023-12-06] MEDS: ESCITALOPRAM 10 MG TABLET PO (07:40)
[2023-12-06] MEDS: DOCUSATE SODIUM 100 MG CAPSULE PO (07:42)
--- NOTE | 2023-12-06 08:03 | P.DS_ITS ---
DS: Providers Provider Date Seen: 12/06/23 Date of admission: 12/04/23 18:33 Primary care physician: Sondra Lancaster CNP Admitting Clinician: Emiliana Espino CNM Attending Physician on discharge: Emiliana Espino CNM Date of Discharge: 12/06/23 DS: Diagnosis Discharge Diagnosis (1) care following vaginal delivery: Status: Acute (2) Lactating mother: Status: Acute Exam Narrative: Exam Narrative: GENERAL APPEARANCE:? normal affect, alert, no distress? MOOD:? appropriate? CHEST:? clear to auscultation and percussion? HEART:? regular rate and rhythm? ABDOMEN:? soft, non-tender the uterine fundus is U/2 and is appropriate for the stage of recovery.? PERINEUM:? mild edema of the perineum, there is a 1st degree that is healing well.? EXTREMITIES:? normal and no edema? Patient has no complaints? No active bleeding?? Doing well? She is requesting discharge home.? Const: Vital Signs, click to edit/add: Vital Signs - 24 hr 12/05/23 08:35 12/05/23 12:13 12/05/23 15:45 Temperature 98.9 F Pulse Rate [Pulse Oximeter] 64 77 65 Respiratory Rate 16 16 16 Blood Pressure [Le ft Arm] 115/71 116/70 117/73 Pulse Oximetry 96 96 96 Oxygen Delivery Me thod Room Air Room Air Room Air 12/05/23 20:01 12/05/23 22:31 12/06/23 07:38 Temperature 98.2 F 98.4 F Pulse Rate [Pulse Oximeter] 73 71 64 Respiratory Rate 16 16 18 Blood Pressure [Le ft Arm] 111/70 130/83 107/71 Pulse Oximetry 96 97 Oxygen Delivery Me thod Room Air Room Air Room Air OB - DS: Summary Hospital Course Hospital Course: The patient is a 28 year old G 3 P 2 at 39.5 weeks gestation that was admitted to the Center on 12/04/23 for labor. She had an uncomplicated vaginal delivery. She delivered a viable female . She is breast feeding and feels that it is going well. the patient has done well. Pain is well controlled with current medications.? She has no new complaints.? Urinary output is adequate and she is voiding without difficulty.? Has a good appetite, is tolerating a general diet, is passing flatus, and has not had a bowel movement.? Has scant amount of rubra lochia.? She is ambulating well.?She is planning Natural Family Planning and condoms for contraception. Peripartum Data Infant delivery method: Vaginal Laceration description: Periurethral - 1st Degree complications: none [place] Gender: Female Infant Discharge Plan: Home Status at Discharge Functional status at discharge: independent ambulation Overall status at discharge: patient is progressing back to baseline Time Spent with Patient Time attestation: Total time spent providing and/or coordinating discharge services: Discharge Plan Discharge Disposition: Home, Self-Care Date of Admission: 12/04/23 18:33 Attending Provider on Discharge: Melody Conway Primary Care Provider: Sondra Lancaster Condition: Stable Anticipated Discharge Date/Time: 12/06/23 12:00 Discharge Medications: New docusate sodium 100 mg Capsule 100 mg PO DAILY Qty: 90 0RF Rx Instructions: Take 1-2 tablets daily as needed for constipation. ibuprofen 600 mg Tablet 600 mg PO Q6H PRNQty: 30 0RF Continued DHA 200 mg capsule 200 mg PO .QD docusate sodium [Stool Softener] 100 mg capsule 100 mg PO .qod Digestive Advantage Probio-Pre 400 million cell tablet,chewable 1 cell PO DAILY Probiotic 3 billion cell capsule 3,000 mmu cells PO QDAY Rx Instructions: administer with a meal calcium carbonate [Calcium 500] 500 mg calcium (1,250 mg) tablet,chewable 500 mg PO QDAY escitalopram oxalate [Lexapro] 20 mg tablet 30 mg PO QDAY Qty: 135 1RF Discontinued ondansetron HCl 4 mg tablet 4 mg PO Q6H PRN (Reason: nausea and vomiting) Qty: 10 0RF escitalopram oxalate 20 mg tablet 20 mg PO DAILY Qty: 90 0RF Discharge Orders: Discharge Order (Routine); Ordered 12/06/23 Ordered By: Melody Conway Patient Education: OB Vaginal/Breast Feeding Additional Instructions: Discharge instructions were reviewed with the patient including signs and symptoms of infection and home going medications.? Lifting Restrictions: 20 pounds for 6? weeks? ?? Do not drive while taking narcotic pain meds.? Off Work or School for 6 weeks.? ?? Symptoms to report to doctor:? -Bleeding that saturates more than one pad per hour? -Passing clots larger than the size of a golf ball? -Pain not relieved by prescribed medication? -Fever above 100.4 degrees Fahrenheit? -A foul vaginal odor? -Difficulty in emotions, mood and functions? -Thoughts of hurting yourself and/or ? -Painful, reddened area in your breast? -Any drainage, redness or tenderness in your IV/epidural site? -Severe headache that doesn't improve after taking medications? -Changes in vision, including temporary loss of vision, blurred vision, and/or light sensitivity? -Upper abdominal pain (usually under ribs on the right side)? -Decrease in urination or painful, frequent urinating? -Chest pain? -Shortness of breath? -Tenderness or pain with redness and/swelling in the calf(s) of your leg? ?? Follow Up in clinic in 2 and 6 weeks.? ?? consultation services are available to all mothers and babies for the first year after delivery.? To make an appointment, please call [phone].? Activity Level: Activity as Tolerated Discharge Diet: Regular Follow Up Appointments: [facility] [Provider Group] Forms: MyHealth Info Instructions
[2023-12-07 16:34] LABS: Rapid Plasma Reagin (RPR) Non Reactive (Non Reactive)
== END 2023-12-06 13:59 | disposition home or self-care (01) | DRG 560 ==
LOC: OB OUT 18:33 → OB 18:33
PROVIDERS: Admitting Provider Advanced Practice Midwife; PCP Family Medicine; Visit Provider Advanced Practice Midwife
DX: O99.824 Streptococcus B carrier state complicating childbirth (principal); O99.344 Other mental disorders complicating childbirth; F41.9 Anxiety disorder, unspecified; O77.0 Labor and delivery complicated by meconium in amniotic fluid; O71.82 Other specified trauma to perineum and vulva; Z3A.39 39 weeks gestation of pregnancy; Z37.0 Single live birth
CPT/HCPCS: 36415; 85025; 86592; 86850; 86900; 86901; 88307; A9270; J0290; J2001; J2405; J2590; J7120

== ENCOUNTER 2024-01-17 17:45 | Emergency (ER) | payer BC, SELFPAY ==
[2024-01-17 18:15] VITALS: BP 116/70; PULSE 98; RESP 18; TEMP 38.3; O2SAT 98; BMI 33.8
--- NOTE | 2024-01-17 18:20 | US_ITS ---
Patient: MONIE CHUN Facility:?[facility] Patient ID:?[id number] Site Patient ID:?[id number]. Site :?1995 Study:?US-Breast Left Breast-01/17/2024 7:11:51 PM Ordering Physician:Miranda Hunter Final Report: LEFT BREAST ULTRASOUND, 01/17/2024 CLINICAL HISTORY: LEFT breast pain. COMPARISON: None. TECHNIQUE: Real-time ultrasound imaging of LEFT breast with imaging documentation. FINDINGS: Targeted LEFT ultrasound performed 10 o`clock 4 cm from the nipple. Hypoechoic collection of fluid is present at mid depth measuring 3.0 x 1.1 x 2.8 cm. Targeted sonogram LEFT breast 5 o`clock 2 cm from the nipple demonstrates heterogeneous tissue with increased vascularity. IMPRESSION: LEFT breast abscess 10 o`clock 4 cm from the nipple measuring 3 cm. Mastitis at 5 o`clock 2 cm from the nipple LEFT breast. RECOMMENDATIONS: If this has not been drained, then recommend drainage procedure. Otherwise, short-term follow-up recommended. BI-RADS: 3. Probably benign. Dictated by Laz Blanca MD @ 01/18/2024 12:38:20 PM.CRL:thomas JR/Dictated by: Laz Blanca MD @ 01/18/2024 12:38:00 PM Signed by:?Laz Blanca MD @01/18/2024 9:34:35 PM (Electronic Signature)
[2024-01-17 22:45] VITALS: TEMP 38.2
[2024-01-17] MEDS: IBUPROFEN 200 MG TABLET 600 MG PO (22:45)
--- NOTE | 2024-01-17 23:22 | ED_ITS ---
HPI - General Adult General Date Seen: 01/17/24 Chief complaint: Breast Symptoms Stated complaint: Mastitis L breast Time Seen by Provider: 01/17/24 19:08 Source: patient Mode of arrival: ambulatory Limitations: no limitations History of Present Illness HPI narrative: Patient is a 28-year-old female presenting for a left breast abscess. She started having signs of mastitis about a week ago and was started on Keflex 4 days ago. She states the fevers are not getting better and is having intermittent fevers and chills. Was told to come to emergency department to be re-evaluated. She does states she has an ultrasound and crop production advisor visit scheduled for this upcoming . Did give 6 weeks ago without complications. Has a fever in triage. Has not taking anything recently for the fever. Denies chest pain, shortness of breath, weakness, numbness, abdominal pain, headache, vision changes. Does notice some skin changes at the left lower breast also. No other concerns at this time Related Data Home Medications Medication Instructions Recorded Confirmed docosahexaenoic acid 200 mg 200 mg PO .QD 08/18/22 12/05/23 capsule ( DHA) Bacillus coagulans 400 million 1 cell PO DAILY 07/01/23 12/05/23 cell chewable tablet (Digestive Advantage Probiotics-Prebiotic) docusate sodium 100 mg capsule 100 mg PO .qod 07/01/23 12/05/23 (Stool Softener) lactobacillus combination no.4 3 3,000 mmu cells PO QDAY 07/01/23 12/05/23 billion cell capsule (Probiotic) calcium carbonate (Calcium 500) 500 mg PO QDAY 07/29/23 12/05/23 Previous Rx's Medication Instructions Recorded escitalopram oxalate 20 mg tablet 30 mg (1.5 x 20 mg) PO QDAY #135 10/28/23 (Lexapro) tabs docusate sodium 100 mg capsule 100 mg PO DAILY #90 caps 12/06/23 ibuprofen 600 mg tablet 600 mg PO Q6H PRN #30 tabs 12/06/23 sulfamethoxazole 800 1 tab PO BID #10 tabs 01/17/24 mg-trimethoprim 160 mg tablet (Bactrim DS) Allergies Allergy/AdvReac Type Severity Reaction Status Date / Time No Known Drug Allergies Allergy Verified 12/02/23 14:24 Review of Systems Status of ROS: Reports: 10 or more systems reviewed and unremarkable except as noted in History and below [facility] Medical History (Updated 01/17/24 @ 23:55 by Chaparro Hunter, DO) History of loss ?Z87.59 - Personal history of other complications of , childbirth and the puerperium (ICD-10) Shingles ?B02.9 - Zoster without complications (ICD-10) Lead exposure ?Z77.011 - Contact with and (suspected) exposure to lead (ICD-10) 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, unspecified (ICD-10) Stillbirth with antepartum ?Z37.1 - Single stillbirth (ICD-10) Menieres disease ?H81.09 - Meniere's disease, unspecified ear (ICD-10) Spontaneous vaginal delivery ?O80 - Encounter for full-term uncomplicated delivery (ICD-10) thyroiditis ?O90.5 - thyroiditis (ICD-10) Surgical History History of repair of anterior cruciate ligament of right knee (11/12/22) ?Z98.890 - Other specified postprocedural states (ICD-10) History of anterior cruciate ligament surgery ?Z98.890 - Other specified postprocedural states (ICD-10) [place] teeth extracted ?K08.409 - Partial loss of teeth, unspecified cause, unspecified class (ICD- 10) Family History Mother Thyroid disease Sister Denton's disease Social History Narrative: SOCIAL? ? Education: doctorate? ? Work: PT ? ? 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 ? Lives with: Terrell, son? ? Pets: denies? ? Abuse: Denies past Unable to assess current, partner present? ? Special Diet: Denies? ? Ok with a blood transfusion: yes? ? Culture or gnosticism beliefs: denies? RISK FACTORS? ? Exercise Times/wk: cross fit 5 days week. ? ? Depression/Anxiety: anxiety? ? Treatments Currently on Lexapro - 20mg. Therapy: Also KEVIN: 0 PHQ 9: 0? ? Seat Belt Use: Routinely ? Smoking: Denies past/present? ? Alcohol/day: Denies while ? ? Caffeine: 1 cup a day ? ? Drug Use: Denies past/present? What is your current living situation?: I presently have a place to live Problems where you live: no known problems In the past 12 months, utilities in danger of being shut off: no In past 12 months, lack of transportation kept you from medical appts, meetings, work, or getting things needed for daily living: no In the past 12 mos, have been you worried that your food would run out before you had money to buy more?: never true In the past 12 mos, the food you bought just didn't last and you didn't have money to buy more?: never true Smoking Status: Never smoker Do you use any of these nicotine containing products: None Second hand tobacco smoke exposure: No How often do you have a drink containing alcohol: 2-3 times a week AUDIT-C Alcohol total score: 3 How often does anyone, including family, friends and others, physically hurt you : never How often does anyone, including family, friends and others, insult or talk down to you: never How often does anyone, including family, friends and others, threaten you with harm: never How often does anyone, including family, friends and others, scream or curse at you: never Little interest or pleasure in doing things: not at all Feeling down, depressed, or hopeless: not at all Exam Narrative: Exam Narrative: Const: Well-nourished, Well-developed, in mild distress Eyes: PERRL, no conjunctival injection, and symmetrical lids HENT: Atraumatic external nose and ears. Moist mucous membranes. Neck: Symmetric, trachea midline, No thyromegaly. CVS: RRR, No murmurs or gallops. Peripheral pulses 2+ and equal in all extremities RESP: Unlabored respiratory effort. Clear to auscultation bilaterally. GI: Nontender/Nondistended, No rebound or guarding. MSK:Extremities w/o deformity, Normal Active ROM Skin: Warm, Dry. Erythema noted to right upper quadrant of left breast Neuro: Normal Muscle tone, No focal neurological deficits. Psych: Awake, Alert, & Oriented x3. Appropriate mood and affect. Const: Vital Signs, click to edit/add: Vital Signs - 24 hr 01/17/24 18:15 01/17/24 22:45 Temperature 101 F H 100.7 F H Pulse Rate [Right Pulse Oximeter] 98 Respiratory Rate 18 Blood Pressure [Ri ght Upper Arm] 116/70 Pulse Oximetry 98 Oxygen Delivery Me thod Room Air Course Vital Signs Vital signs: Initial Vital Signs Temperature 101 F H 01/17/24 18:15 Temperature Source Temporal Artery Scan 01/17/24 18:15 Pulse Rate 98 01/17/24 18:15 Respiratory Rate 18 01/17/24 18:15 Blood Pressure 116/70 01/17/24 18:15 Blood Pressure Mean 85 01/17/24 18:15 Blood Pressure Position Sitting 01/17/24 18:15 Pulse Oximetry 98 01/17/24 18:15 Oxygen Delivery Method Room Air 01/17/24 18:15 Vital Signs Temperature 101 F H 01/17/24 18:15 Pulse Rate 98 01/17/24 18:15 Respiratory Rate 18 01/17/24 18:15 Blood Pressure 116/70 01/17/24 18:15 Pulse Oximetry 98 01/17/24 18:15 Oxygen Delivery Method Room Air 01/17/24 18:15 Temperature 100.7 F H 01/17/24 22:45 Pulse Rate 98 01/17/24 18:15 Respiratory Rate 18 01/17/24 18:15 Blood Pressure 116/70 01/17/24 18:15 Pulse Oximetry 98 01/17/24 18:15 Oxygen Delivery Method Room Air 01/17/24 18:15 Medications Administered Medications: Discontinued Medications Generic Name Dose Route Start Last Admin Trade Name Juan Jose PRN Reason Stop Dose Admin Ibuprofen 600 mg 01/17/24 22:52 01/17/24 22:45 Ibuprofen 200 Mg Tablet PO 01/17/24 22:53 600 mg ONCE ONE Administration Medical Decision Making MDM Narrative Medical decision making narrative: Patient is a 28-year-old female presenting for concern of a breast abscess. Ultrasound was ordered while she was in the waiting room. It returned showing a possible right upper quadrant left breast abscess. There are also some abnormality seen left lower breast on the left side which she will need a follow-up mammogram or does need ultrasound for. She does states she has a follow-up with her crop production advisor on this Thursday. She is otherwise doing well but she does meet SIRS criteria with a fever of 101. Was already given ibuprofen. Will order CBC and lactate. They returned showing no concerning abnormalities. Lactic acid is at 2 which is only slightly above normal she otherwise looks healthy. I did speak to her about draining the abscess and she is agreeable to this. I did drain about 1 mL of purulent material which we sent a culture for. I will add on Bactrim on top of the Keflex she is already taking. She is agreeable to this plan. Lab Data Labs: Lab Results 01/17/24 Range/Units 23:35 WBC 7.87 (4.50-11.00) K/uL RBC 4.08 (4.00-5.20) m/uL Hgb 12.2 (12.0-16.0) gm/dL Hct 37.1 (33.0-51.0) % MCV 91 (80-100) fL MCH 30 (26-34) pg MCHC 33 (32-36) gm/dL RDW Coeff of Jagdeep 11.3 L (11.5-15.5) % Plt Count 143 (140-440) K/uL Neut % (Auto) 74.3 H (42.0-72.0) % Lymph % (Auto) 12.8 L (20-44) % Beckham % (Auto) 12.6 H (0.0-11.0) % Eos % (Auto) 0.1 (0.0-7.0) % Baso % (Auto) 0.1 (0.0-3.0) % Neut # (Auto) 5.80 (1.7-7.0) K/uL Lymph # (Auto) 1.00 (0.90-2.90) K/uL Beckham # (Auto) 1.00 H (0.00-0.90) K/UL Eos # (Auto) 0.01 (0.00-0.50) K/uL Baso # (Auto) 0.01 (0.00-0.30) K/uL Abs Immat Gran (auto) 0.01 (0.00-0.30) K/uL Imm/Tot Granulo (auto) 0.1 % Lactate 2.0 H (0.5-1.9) mmol/L Imaging Data Left breast abscess: Attestation: I have reviewed the pertinent imaging results. Radiologist's impression: PRELIMINARY IMPRESSION: 1. Within the left breast at approximately the 10 o`clock position there is a hypoechoic irregular focus measuring 3 x 2.8 x 1 cm. Clinical correlation and/or diagnostic aspiration may be helpful to exclude a breast abscess. 2. In the 5 o`clock position of the left breast, there is a region of heterogeneous echotexture approximately 2.5 cm in diameter. Further evaluation with mammography or follow-up targeted ultrasound is recommended to exclude mass. Dictated by Surendra Tapia MD @ 01/17/2024 9:03:33 PM Discharge Plan Discharge Clinical Impression: Breast abscess Patient Disposition: Home, Self-Care Condition: Stable Instructions: Mastitis (ED) Additional Instructions: Take Tylenol and ibuprofen for pain. Continue take the Keflex an add on the Bactrim. There also some abnormalities seen in the left lower breast. You should follow-up with your OB Gyne for possible mammogram or targeted ultrasound. Speak to them on before your appointments to see if they want to keep your ultrasound appointment that was previously scheduled for . Return to emergency department for new or worsening symptoms. Prescriptions: New sulfamethoxazole-trimethoprim [Bactrim DS] 800-160 mg tablet 1 tab PO BID Qty: 10 0RF No Action DHA 200 mg capsule 200 mg PO .QD docusate sodium [Stool Softener] 100 mg capsule 100 mg PO .qod Digestive Advantage Probio-Pre 400 million cell tablet,chewable 1 cell PO DAILY Probiotic 3 billion cell capsule 3,000 mmu cells PO QDAY Rx Instructions: administer with a meal calcium carbonate [Calcium 500] 500 mg calcium (1,250 mg) tablet,chewable 500 mg PO QDAY escitalopram oxalate [Lexapro] 20 mg tablet 30 mg PO QDAY Qty: 135 1RF docusate sodium 100 mg Capsule 100 mg PO DAILY Qty: 90 0RF Rx Instructions: Take 1-2 tablets daily as needed for constipation. ibuprofen 600 mg Tablet 600 mg PO Q6H PRNQty: 30 0RF Follow Up/Referrals: Sondra Lancaster CNP [Primary Care Provider] - Stand Alone [facility] Inst[facility]
[2024-01-17 23:41] LABS: Basophils Absolute Auto 0.01 K/uL (0.00-0.30); Basophils Percent Auto 0.1 % (0.0-3.0); Eosinophils Absolute Auto 0.01 K/uL (0.00-0.50); Eosinophils Percent Auto 0.1 % (0.0-7.0); Hematocrit 37.1 % (33.0-51.0); Hemoglobin* 12.2 gm/dL (12.0-16.0); Immature Granulocytes Abs Auto 0.01 K/uL (0.00-0.30); Immature Granulocytes Pct Auto 0.1 %; Lymphocytes Percent Auto 12.8 % (20-44); Mean Corpuscular HGB Conc 33 gm/dL (32-36); Mean Corpuscular Hemoglobin 30 pg (26-34); Mean Corpuscular Volume 91 fL (80-100); Monocytes Percent Auto 12.6 % (0.0-11.0); Neutrophils Percent Auto 74.3 % (42.0-72.0); Platelet Count* 143 K/uL (140-440); RDW Coefficient of Variation % 11.3 % (11.5-15.5); Red Blood Count 4.08 m/uL (4.00-5.20); White Blood Count* 7.87 K/uL (4.50-11.00)
[2024-01-17 23:43] LABS: Slide Review Reflex No
== END 2024-01-18 00:10 | disposition home or self-care (01) ==
PROVIDERS: Emergency Provider Student in an Organized Health Care Education/Training Program; PCP Family Medicine
DX: N61.1 Abscess of the breast and nipple (principal)
CPT/HCPCS: 36415; 76641; 83605; 85025; 87070; 99283; 99284; A9270

== ENCOUNTER 2024-01-20 07:53 | Outpatient (CLI) | payer BC, SELFPAY ==
--- NOTE | 2024-01-20 07:45 | MM_ITS ---
Patient: MONIE CHUN Facility:?[facility] Patient ID:?[id number] Site Patient ID:?[id number]. Site :?1995 Study:?XRay-Breast Bilateral 3D W/CAD-01/20/2024 8:28:24 AM Ordering Physician:?Angie Curran Final Report: DIGITAL DIAGNOSTIC BILATERAL MAMMOGRAM USING TOMOSYNTHESIS AND COMPUTER-AIDED DETECTION BILATERAL BREAST ULTRASOUND CLINICAL HISTORY: BILATERAL breast infection. COMPARISON: 01/17/2024 ultrasound. TECHNIQUE: Digital BILATERAL mammogram in four projections. Tomosynthesis and CAD utilized. Real-time ultrasound imaging of BILATERAL breast with imaging documentation. BREAST COMPOSITION: The breasts are extremely dense, which lowers the sensitivity of mammography. FINDINGS: 3D CC/MLO BILATERAL mammogram images submitted. No suspicious mass or architectural distortion. No suspicious calcifications or adenopathy. Targeted RIGHT breast ultrasound performed in an area of redness performed at 2 o`clock 7-10 cm from the nipple. No fluid collection or mass. Targeted LEFT breast ultrasound performed at 5 o`clock 3 cm from the nipple. Normal dense tissue is present. At 10 o`clock 6 cm from the nipple LEFT breast the previously noted abscess has since resolved. IMPRESSION: Resolution of previously noted LEFT-sided abscess. No abscess elsewhere. No suspicious findings. No malignancy. RECOMMENDATIONS: Clinical follow-up and age-appropriate screening mammography. Results and recommendations discussed with the patient. BI-RADS Category 2: Benign A lay language report of this examination will be provided to the patient. Dictated by Laz Blanca MD @ 01/20/2024 9:43:27 AM jj/Dictated by: Laz Blanca MD @ 01/20/2024 9:43:00 AM Signed by:?Laz Blanca MD @01/20/2024 1:02:16 PM (Electronic Signature)
--- NOTE | 2024-01-20 08:15 | US_ITS ---
Patient: MONIE CHUN Facility:?[facility] Patient ID:?[id number] Site Patient ID:?[id number]. Site :?1995 Study:?US-Breast Bilateral DR FREDERICK TO READ-01/20/2024 8:47:24 AM Ordering Physician:?LACY TUBBS Final Report: PLEASE SEE DIGITAL DIAGNOSTIC BILATERAL MAMMOGRAM PERFORMED SAME DAY CRL:umm salomon/Dictated by: Laz Frederick MD @ 01/20/2024 9:43:00 AM Signed by:?Laz Frederick MD @01/20/2024 1:02:18 PM (Electronic Signature)
== END 2024-01-20 07:54 | disposition home or self-care (01) ==
LOC: MAMMO 07:54
PROVIDERS: PCP Family Medicine; Visit Provider Advanced Practice Midwife
DX: N61.0 Mastitis without abscess (principal); N61.1 Abscess of the breast and nipple
CPT/HCPCS: 76642; 77066; G0279

== ENCOUNTER 2024-02-16 13:00 | Outpatient (RCR) | payer BC, SELFPAY | END 2024-04-24 13:12 | disposition home or self-care (01) | PROVIDERS: PCP Family Medicine; Visit Provider Advanced Practice Midwife | DX: N81.89 Other female genital prolapse (principal); Z51.89 Encounter for other specified aftercare | CPT/HCPCS: 97112; 97140; 97162 ==

== ENCOUNTER 2024-11-17 07:15 | Outpatient (CLI) | payer BC, SELFPAY | END 2024-11-17 07:16 | disposition home or self-care (01) | LOC: US 07:16 | PROVIDERS: PCP Family Medicine; Visit Provider Advanced Practice Midwife | DX: Z34.91 Encounter for supervision of normal pregnancy, unspecified, first trimester (principal); O20.9 Hemorrhage in early pregnancy, unspecified; Z3A.01 Less than 8 weeks gestation of pregnancy | CPT/HCPCS: 76817 ==

== ENCOUNTER 2024-11-17 09:19 | Outpatient (CLI) | payer BC, SELFPAY | END 2024-11-17 09:20 | disposition home or self-care (01) | PROVIDERS: PCP Family Medicine; Visit Provider Advanced Practice Midwife | DX: Z34.91 Encounter for supervision of normal pregnancy, unspecified, first trimester (principal); Z3A.08 8 weeks gestation of pregnancy | CPT/HCPCS: 83020; 83021; 84443; 85660; 86592; 86703; 86704; 86706; 86762; 86787; 86803; 86850; 86900; 86901; 87086; 87340 ==

== ENCOUNTER 2024-12-01 11:20 | Outpatient (CLI) | payer BC, SELFPAY | END 2024-12-01 11:21 | disposition home or self-care (01) | LOC: US 11:20 | PROVIDERS: PCP Family Medicine; Visit Provider Advanced Practice Midwife | DX: O20.9 Hemorrhage in early pregnancy, unspecified (principal); Z3A.09 9 weeks gestation of pregnancy | CPT/HCPCS: 76817 ==

== ENCOUNTER 2025-02-14 07:12 | Outpatient (CLI) | payer BC, SELFPAY | END 2025-02-14 07:13 | disposition home or self-care (01) | LOC: US 07:12 | PROVIDERS: PCP Family Medicine; Visit Provider Midwife | DX: O09.292 Supervision of pregnancy with other poor reproductive or obstetric history, second trimester (principal); Z87.59 Personal history of other complications of pregnancy, childbirth and the puerperium; Z3A.19 19 weeks gestation of pregnancy | CPT/HCPCS: 76811 ==

== ENCOUNTER 2025-04-16 08:39 | Outpatient (CLI) | payer BC, SELFPAY | END 2025-04-16 08:40 | disposition home or self-care (01) | LOC: NFLDREF 04-17 12:57 | PROVIDERS: PCP Family Medicine; Referring Provider Family Medicine; Visit Provider Advanced Practice Midwife | DX: Z34.93 Encounter for supervision of normal pregnancy, unspecified, third trimester (principal); Z3A.28 28 weeks gestation of pregnancy | CPT/HCPCS: 86592 ==

== ENCOUNTER 2025-04-20 08:34 | Outpatient (CLI) | payer BC, SELFPAY | END 2025-04-20 08:35 | disposition home or self-care (01) | LOC: NFLDREF 04-21 19:15 | PROVIDERS: PCP Family Medicine; Referring Provider Family Medicine; Visit Provider Obstetrics & Gynecology | DX: Z34.83 Encounter for supervision of other normal pregnancy, third trimester (principal) | CPT/HCPCS: 82951; 82952 ==

== ENCOUNTER 2025-05-06 15:44 | Outpatient (CLI) | payer BC, SELFPAY ==
--- OUTSIDE RECORDS SUMMARY | 2025-05-06 15:16 | XMS_ITS | Patient Health Record ---
Author Organization [facility] Address [address] [place] [address] Care Team Providers Care News Librarian Name Role Phone Arlyn Merlos Primary Care Provider Un available VELIA Patrick Unavailable [phone] Reason For Referral No Information Medications Medication SIG (Take, Route, Frequency, Duration) Notes Start Date End Date Status Triamterene-HCTZ Act dionne Lexapro Active Dyazide 37.5-25 MG Capsule 1 capsule in the morning Orally Once a day; Duration: 30 Active Social History Social History Alcohol Use: Social Info Question Answer Notes Recreational drugs Have you used drugs other than those for medical reasons in the past 12 months? No : Social Info Question Answer Notes How often do you consume alcohol? Answer: less than 6 per week Recreational drug use Social Info Question Answer Notes Did you ever use recreationa l drugs? 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) Active confirmed Problem Sensorineural hearing loss, bilateral (700612098) Bilateral sensorineural hearing loss (H90.3) Active confirmed Problem Abnormal gait (28265958) Imbalance (R26.89) Active confirmed Problem Pressure sensation in right ear (H93.8X1) Active confirmed Plan Of Treatment No Information Insurance Providers Payer Name Payer Address Payer Phone Subscriber Number Group Number Insured Name Patient Relationship to Insured Coverage Start Date Coverage End Date [employer] [address] [address] [place]EB MCNALLY [id number] [address] Child - Insured has Financial Responsibility Medical (General) History Surgical History Surgery Date(Month/Year) ACL repair 2010 Hospitalization History Reason Date(Month/Year) see above
--- OUTSIDE RECORDS SUMMARY | 2025-05-06 15:16 | XMS_ITS | Clinical Summary ---
Author Organization [employer] [facility] Address [address] [place] [id number] Care Team Providers Care Concrete Curer Name Role Phone Melody Conway CN Unavailable [phone] Angie Curran CN Unavailable Angie Curran CNM Primary Care Provider [phone] Allergies No known active allergies Medications Dqmxzofz-Xj-Wai- Fe-FA ( VITAMIN) tab tablet Take 1 Tablet by mouth once daily. 90 Tablet 3 12/04/2020 Active escitalopram oxalate (LEXAPRO) 20 mg tabletIndication s:Anxiety Take 1 Tablet (20 mg) by mouth every morning. 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 Document in Dating section. [19w4d on 07/16/23] Final KOMAL by LMP LMP Date: 03/01/23 KOMAL: 12/06/23 Early US: Date: 05/04/23 GA: 9w1d KOMAL: 12/06/23 PrePregnancy Weight: 165# Height: 62 in BMI: 30.2 PLANS & FUTURE APPOINTMENTS: ULTRASOUND/GROWTH PLAN: - Through: - Growth: Next TESTING PLAN: - Testing: Through DELIVERY PLAN: - Scheduled delivery: - Preferred delivery location: PRIMARY DIAGNOSIS: 28 y.o. Estimated Date of Delivery: 12/06/23 MATERNAL 10/15/22 IUFD at [id number]-[id number] measuring 88r4m--Fqmzcqn Syndrome Anxiety Hasimoto's (04/29/22Thyroperoxidase hscuocmmbuntab=810.3 H, free T4=0.75 L) Meniere's disease PREVIOUS ULTRASOUNDS: Next: 07/16/23 05/04/23 9w1d EDC 12/06/23 ECHO: 07/16/23 REFERRING PHYSICIAN/PHONE/LAST UPDATE: Angie Curran CNM, [facility], Primary MD approves scheduling of recommended ultrasounds/testing: Yes SPECIALISTS/CONSULTS: Include: Specialty MD Clinic Name Phone# [facility] and ADDED TO PATIENT CARE TEAM Not Applicable GENETICS: NIPT: Maternity 21sent--no results found AFP: First screen (NT/seq/integ): if positive add .FIRSTABNORMAL Quad screen (Tetra/Triple screen): if positive add .QUADABNORMAL Amniocentesis/CVS: IVF with PGD: Carrier screening: Declines/Not Done CARE COORDINATION: PERTINENT LABS: Labs reviewed? Yes Normal? Yes Blood type: A positive Antibody screen: negative Non-[facility] labs need to be entered in [employer]? Yes PERTINENT MEDS: HCTZ Lexapro Ativan PROCEDURES: IF FGR <10% or EFW <2000 grams: Add FGRPCOM PLAN OF CARE: Original and updated POC [facility] Encounter for preconception consultation 03/2023 Overview (11/17/2022): [facility] CONSULTATION ON 12/01/22 --Virtual Visit REASON FOR CONSULT: planning TODAY'S APPOINTMENT: MD Consultation & GC PRIMARY DIAGNOSIS: 27 y.o. RECENT loss: IUFD found at 20w anatomy scan, measured 17.2 weeks, delivered 10/15/22 --Lead exposure (lead level negative) --LAC not detected, FVL neg, B-2 Glyco neg, ACLA neg, TORCH labs neg, KB neg --low risk [id number] --POC sent for cytogenetic studies: 46XX --Anatomy US at time of dx: Diffuse SQ edema and cystic structures associated with head/thorax suggesting cystic hygromas, consider Roach syndrome although findings are nonspecific BMI 28.35 Anxiety (Lexapro) Hx PP thyroiditis (TSH Normal at NOB) REFERRING PHYSICIAN/PHONE/LAST UPDATE: Melody Conway CNM--[facility] [phone] Primary MD approves scheduling of recommended ultrasounds/testing: Yes SPECIALISTS/CONSULTS: Include: Specialty MD Clinic Name Phone# [facility] and ADDED TO PATIENT CARE TEAM No CARE COORDINATION: GENETICS: PROCEDURES: PERTINENT LABS: see above PERTINENT MEDS: Lexapro, Ativan, PNV PLAN OF CARE: Thyroiditis 12/01/2021 Anxiety 11/11/2018 Meniere's disease 2015 Resolved Problems Problem Noted Date Diagnosed Date Resolved Date 12/04/2020 11/28/2021 Hypertension 2015 Immunizations Immunization Administration Dates Next Due COVID-19 vaccine (Moderna 100mcg/0.5mL) HEATHER OLEARY 11/08/2020,10/18/2020 HPV 9 (Gardasil 9) 12/05/2008,07/13/2008, 008 Hepatitis A (Peds) 12/05/2008,04/30/2008 Influenza A (H1N1), Inactivated 08/21/2009 Influenza Virus, Unspecified 07/19/2019,07/16/20 06 Influenza, IIV3 (Age 6-35 mos) 06/09/2016 Influenza, IIV3 (Age >=3 years) 06/19/20 21,07/08/2014,07/02/2013,07/29 Influenza, IIV4 07/20/2022, 0,07/06/2018,07/16 Influenza, Inactivated IIV3 (Age 65+ Years) Preserv Free 06/04/2017 Influenza,CCIIV4 PRESERV FREE 07/19/2019 Influenza,LAIV4 Live Intrana deloris (Flumist) 07/09/2011,06/24/2010,07/05/2009 Meningococcal Vaccine (Menomune) 03/20/2011,04/29 Tdap 06/03/2021,02/23/2019,03/20/2011 Tuberculin (PPD) 07/16/2015 Typhoid (injectable) 08/30/2014 Varicella Vaccine 03/27/2011 Yellow Fever 08/30/2014 Family History Medical History Relation Name Comments Denton's thyroiditis Maternal Aunt Cancer Mother Ya Amacher thyroid Denton's thyroiditis Sister Relation Name Status Comments Father Alive Maternal Aunt Alive Mother Ya Amacher Alive Sister Alive Social History Tobacco Use Types Packs/Day Years Used Date Smoking Tobacco: Never Smokeless Tobacco: Never Alcohol Use Standard Drinks/Week Comments Not Currently 0 (1 standard drink = 0.6 oz pur e alcohol) socially PHQ-2 Answer Date Recorded PHQ-2 TOTAL SCORE 0 11/28/2021 Social Connections Answer Date Recorded Frequency of Communication with Friends and Fami ly 0 10/27/2022 Financial Resource Strain Answer Date R ecorded Difficulty of Paying Living Expenses 3 10/27/2022 Difficulty of Paying Living Expenses Not on file 10/27/2022 Food Insecurity Answer Date Recorded Worried About Running Out of Food in the Last Ye ar 1 10/27/2022 Transportation Needs Answer Date Record ed Lack of Transportation (Medical) 1 10/27/2022 Housing Stability Answer Date Recorded Unable to Pay for Housing in the Last Year 1 10/27/2022 Comments Unknown Sex and Gender Information Value Date Recorded Sex Assigned at Not on file Legal Sex Female 5:23 AM ADMISSIONS NURSE Gender Identity Not on file Sexual Orientation Not on file 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 Not on file Not on file Obstetrics History Para Term AB IAB SAB Ectopic Multiple Livin g Live Births 2 Date Outcome GA Total Labor Labor/2nd/3rd Weight Sex Type Anes PTL Fiona A1 A5 Name Clin Last Filed Vital Signs Vital Sign Reading Time Taken Comments Blood Pressure 100/62 11/08/2024 7:58 AM ADMISSIONS NURSE Pulse 68 11/08/2024 7:58 AM ADMISSIONS NURSE Temperature 36.9 C (98.5 F) 10/26/2023 6:49 PM ADMISSIONS NURSE Respiratory Rate 16 10/26/2023 6:49 PM ADMISSIONS NURSE Oxygen Saturation 97% 10/26/2023 6:49 PM ADMISSIONS NURSE Inhaled Oxygen Concentration - - Weight 78.5 kg (173 lb) 11/08/2024 7:58 AM ADMISSIONS NURSE Height 157.5 cm (5' 2) 09/14/2024 7:48 AM ADMISSIONS NURSE Body Mass Index 31.64 09/14/2024 7:48 AM ADMISSIONS NURSE Plan of Treatment Health Maintenance Due Date Last Done Comments HIV for age 15-65 02/23/2008 Hepatitis C screening for age 18-79 2011 Hepatitis B series for 19+ (1 of 3 - 19+ 3-dose series) 02/23/2012 Depression screening for age 12+ 11/28/2022 11/28/2021, 12/04/2020, 02/29/2020 COVID-19 vaccine series ( season) 2024 07/31/2021, 11/08/2020, 10/18/2020 Influenza Vaccine (#1) 2025 2, 06/19/2021, 06/27/2020, Additional history exists BMI (ht and wt on same day) for age 18+ 09/14/2025 09/14/2024, 10/27/2022, 11/28/2021, Additional history exists Pap test for age 21-65 01/19/2027 , 01/20/2024, 01/15/2021, Additional history exists Tetanus booster 06/03/2031 06/03/2021, 01/27, 03/20/2011 Pneumococcal series for age 6-49 Aged Out No longer eligible based on patient's age to complete this topic Procedures Procedure Name Priority Date/Time Associated Diagnosis Comments HPV HIGH RISK Routine 01/20/2024 12:15 PM CDT from Last 3 Months or Most Recently Relevant to Health Maintenance Results * HPV HIGH RISK (01/20/2024 12:15 PM CDT) TYPE 16 Negative Negative 01/25/2024 3:48 PM CDT [facility] TYPE 18 Negative Negative 01/25/2024 3:48 PM CDT [facility] OTHER HIGH RISK TYPES Negative Negative 01/25/2024 3:48 PM CDT [facility] Other (Cervical) 01/20/2024 12:15 PM CDT 01/24/2024 8:10 AM CDT Narrative [facility] - 01/25/2024 3:48 PM CDT HPV types 16, 18, 31, 33, 35, 39, 45, 51, 52, 56, 58, 59, 66 and 68 DNA were undetectable or below the pre-set threshold. Methodology: Maicol Essie 4800 HPV Test us Angie VARGAS [employer] Final Resul t [facility] [address] [place] [address], from Last 3 Months or Most Recently Relevant to Health Maintenance Insurance [facility] [employer] Care Teams Concrete Curer Relationship Specialty Start Date End Date Angie Curran CNM [address] [place] [address] PCP - General Certified Nurse Field Marketer 07/16/23 Melody Conway CNM [address] [place] [id number] Certified Nurse Field Marketer 10/27/22 Angie Curran CNM [address] [place] [address] Referring Provider Certified Nurse Field Marketer 06/07/23
[2025-05-06 15:38] VITALS: BP 109/64; PULSE 69; RESP 18; TEMP 36.5; O2SAT 96
[2025-05-06 15:55] VITALS: TEMP 37.1
[2025-05-06 16:00] VITALS: BP 102/55; PULSE 65
--- NOTE | 2025-05-06 16:15 | CRLHL7_ITS ---
For Patients: As a result of the Cures Act, medical imaging exams and procedure reports are released immediately into your electronic medical record. You may view this report before your referring provider. If you have questions, please contact your health care provider. CLINICAL HISTORY: Right lower quadrant pain rule out appendicitis FINDINGS: Normal gallbladder with gallbladder wall measuring 1 millimeter. Negative sonographic Halney`s sign. Common bile duct measures 3 millimeters. Appendix is not seen in the right lower quadrant no free fluid. IMPRESSION: 1. Appendix not seen. No free fluid in the right lower quadrant. Appendicitis can not be ruled out based on this study. 2. No findings for cholelithiasis. Dictated by Cha Ayala MD @ 05/06/2025 5:18:22 PM (Electronically Signed)
[2025-05-06] MEDS: ACETAMINOPHEN 500 MG TABLET 1000 MG PO (16:23)
[2025-05-06 16:34] LABS: Hematocrit 32.9 % (33.0-51.0); Hemoglobin* 11.6 gm/dL (12.0-16.0); Immature Granulocytes Abs Auto 0.03 K/uL (0.00-0.30); Immature Granulocytes Pct Auto 0.4 %; Lymphocytes Absolute Auto 1.86 K/uL (0.90-2.90); Mean Corpuscular HGB Conc 35 gm/dL (32-36); Mean Corpuscular Hemoglobin 31 pg (26-34); Mean Corpuscular Volume 89 fL (80-100); RDW Coefficient of Variation % 12.1 % (11.5-15.5); Red Blood Count 3.69 m/uL (4.00-5.20); White Blood Count* 8.17 K/uL (4.50-11.00)
[2025-05-06 16:40] LABS: Appearance Urine Clear (Clear)
[2025-05-06 16:41] LABS: Slide Review Reflex No
--- NOTE | 2025-05-06 17:11 | PM.OBLDTN ---
OB - Triage/Final Diagnosis Visit Information Date of evaluation: 05/06/25 Narrative: The patient is a 30 year old 4 para 2 at 31.2 weeks gestation by first trimester ultrasound, who presents with sudden onset right lower quadrant pain, sharp in nature. She reports this began suddenly when she was getting a bottle ready for her daughter. Denies doing any strenuous activity today. At the time of her arrival to unit, she reports pain had began to subside but not gone completely. CBC normal, UA appears to likely be a contaminated specimen but a urine culture will be done, small amount of sediment in urine. An abdominal ultrasound is negative for any obvious concerns today. On my examination her abdomen is soft, slight tenderness in right lower quadrant with palpation although she reports her pain is much improved. She was given Tylenol for pain prior to my exam. Denies pain at rest at this time. Given precautions to return if pain returns, has decreased movement or vaginal bleeding. Encouraged her to push fluids at home and rest. She is comfortable with going home and monitoring there at this time. Category 1 FHR tracing without contractions. Reason for evaluation: other Evaluation Laboratory results: Laboratory Tests 05/06/25 05/06/25 Range/Units 16:30 16:27 WBC 8.17 (4.50-11.00) K/uL RBC 3.69 L (4.00-5.20) m/uL Hgb 11.6 L (12.0-16.0) gm/dL Hct 32.9 L (33.0-51.0) % MCV 89 (80-100) fL MCH 31 (26-34) pg MCHC 35 (32-36) gm/dL RDW Coeff of Jagdeep 12.1 (11.5-15.5) % Plt Count 143 (140-440) K/uL Neut % (Auto) 68.5 (42.0-72.0) % Lymph % (Auto) 22.8 (20-44) % [place] % (Auto) 7.3 (0.0-11.0) % Eos % (Auto) 1.0 (0.0-7.0) % Baso % (Auto) 0.0 (0.0-3.0) % Neut # (Auto) 5.60 (1.7-7.0) K/uL Lymph # (Auto) 1.86 (0.90-2.90) K/uL [place] # (Auto) 0.60 (0.00-0.90) K/UL Eos # (Auto) 0.08 (0.00-0.50) K/uL Baso # (Auto) 0.00 (0.00-0.30) K/uL Abs Immat Gran (auto) 0.03 (0.00-0.30) K/uL Imm/Tot Granulo (auto) 0.4 % Urine Color Light yellow (Yellow) Urine Appearance Clear (Clear) Urine pH 7.0 (5.0-8.5) Ur Specific [place] 1.010 (1.000-1.030) Urine Protein Negative (Negative) Urine Glucose (UA) Negative (Negative) Urine Ketones Negative (Negative) Urine Blood Negative (Negative) Urine Nitrite Negative (Negative) Urine Bilirubin Negative (Negative) Urine Urobilinogen 0.2 (0.2-1.0) Ur Leukocyte Esterase Trace A (Negative) Urine RBC 0-2 (0-2) Urine WBC 0-2 (0-5) Ur Squamous Epith Cells Moderate A (None-Few) Amorphous Sediment Few A (None) Urine Bacteria Moderate A (None) Vital signs: Vital Signs - 24 hr 05/06/25 15:38 05/06/25 16:00 Temperature 97.7 F Pulse Rate 65 Pulse Rate [Right Pulse Oximeter] 69 Respiratory Rate 18 Blood Pressure 102/55 L Blood Pressure [Right Upper Arm] 109/64 Pulse Oximetry 96 Oxygen Delivery Method Room Air Fetus (Single) Heart Rate Baseline: 130 Beam House Inspector Variability: Moderate (6-25) Monitor Accelerations: Present Monitor Decelerations: None Final Diagnosis (1) Abdominal pain during : Status: Acute
--- NOTE | 2025-05-06 18:51 | PC.OBNST ---
NST Note NST Note Start: 05/06/25 15:49 Freq: ONCE Status: Active Protocol: Document 05/06/25 18:50 PORT (Rec: 05/06/25 18:51 PORT Desktop) NST Note 4 Para (# of births) 2 EDC 07/06/25 Gestational Age In 31 Weeks & 2 Days Weeks & Days Patient Presented Pain with Complaint(s) of If Pain, describe RLQ location Other Complaints Pt experienced sudden onset sharp RLQ pain Reactive Yes Appropriate for Yes Gestational Age IVANA Shah RNC Date 05/06/25 Reactive Yes Appropriate for Yes Gestational Age IVANA Orourke CNM Date 05/06/25 OB NST charge Yes Complete NST Note Yes via Write Note The provider's electronic signature indicates the NST is reactive/appropriate for gestational age. *Note to provider: If an addendum is required, open the patient's chart and click on the note under the Nurse/Allied Health tab.
== END 2025-05-06 17:15 | disposition home or self-care (01) ==
LOC: OB OUT 15:45 → OB 15:46
PROVIDERS: PCP Family Medicine; Visit Provider Advanced Practice Midwife
DX: R10.31 Right lower quadrant pain (principal)
CPT/HCPCS: 36415; 59025; 76705; 81001; 81003; 85025; 87086; G0463; A9270

== ENCOUNTER 2025-06-08 11:35 | Outpatient (CLI) | payer BC, SELFPAY | END 2025-06-08 11:36 | disposition home or self-care (01) | LOC: NFLDREF 06-13 18:12 | PROVIDERS: PCP Family Medicine; Referring Provider Family Medicine; Visit Provider Advanced Practice Midwife | DX: O26.893 Other specified pregnancy related conditions, third trimester (principal); R12 Heartburn; Z3A.36 36 weeks gestation of pregnancy | CPT/HCPCS: 87081; 87653 ==

== ENCOUNTER 2025-07-06 12:03 | Outpatient (CLI) | payer BC, SELFPAY | END 2025-07-06 12:04 | disposition home or self-care (01) | LOC: NFLDREF 07-09 18:22 | PROVIDERS: PCP Family Medicine; Referring Provider Family Medicine; Visit Provider Advanced Practice Midwife | DX: Z34.93 Encounter for supervision of normal pregnancy, unspecified, third trimester (principal) | CPT/HCPCS: 87081; 87653 ==

== ENCOUNTER 2025-07-11 20:06 | Inpatient (IN) | payer BC, SELFPAY ==
[2025-07-11] VITALS (8 sets, daily range): BP systolic 102–124; BP diastolic 57–64; PULSE 68–86; RESP 16–18; TEMP 36.4–36.8; O2SAT 98; BMI 36.5
[2025-07-11 15:47] LABS: Amnisure Rom* POSITIVE
--- NOTE | 2025-07-11 16:05 | P.LDBA_ITS ---
Subjective History of Present Illness Date Seen: 07/11/25 Narrative: Emily is being admitted to Labor and Delivery for new onset of bloody show today around 1130. She is a 30 year old at 40.5 weeks gestation. Her full history and physical was dictated by myself on 06/15/25. Please see this for details. She was questioning if she was leaking some fluid so an AmniSure was done and is positive although she has moderate amount of bloody show with mucus discharge. She has been yahir since arrival and feels her contractions are stronger and more frequent. She has made cervical change since her arrival from 2cm to 3.5cm and is requesting AROM for augmentation. Specific Issues/Plans : Terrell Children: Barry Encarnacion(loss) Baby: Keene! 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 H&P done by Carmen Orourke CNM on 06/15/25 # Elevated 1hr GTT at 28wks 04/16/25 * 04/16/25: 210 * Patient desired to do the 3hr GTT as she has no had GDM in her other pregnancies rather than being diagnosed with GDM by her 1hr GTT * 3hr GTT 04/20/25: fasting 87 (70-94), 1hr 201 ((70-179), 2hr 123 (70-154), 3hr 103 (70-139). NO GDM. # Hx of a loss at 17 wks, noted at 20 wk anatomy scan. Baby had Turners # Anxiety Stable on 30 mg Lexapro. # Hx of PP thyroiditis TSH at NOB: 1.810 # Close spaced . Delivered 12/04/23 Imaging: First Trimester US (12/01/2024)- revealed SLIUP with normal structures consist ent with dating. (Repeat was done since yolk sac looked compressed) Level II Anatomy US (02/14/2022): Impression: 1. Blount at 19w5d gestational age. 2. No anomalies commonly detected by ultrasound were identified in the detailed anatomic survey within the limits of ultrasound. 3. Growth parameters and estimated weight were consistent with gestational age predicted by assigned KOMAL. 4. The amniotic fluid volume appeared normal. 5. On transabdominal imaging the cervix appeared long and closed. COVID:Declines Flu: 06/29/25 TDAP:given 05/04/25 32wk Mental Health: 05/04/2025 34wk Hgb: 11.6 OB - Problem Based A/P Additional Plan (1) 40 weeks gestation of : Status: Acute (2) Pain during labor: Status: Resolved Plan Assessment:?? at 40.5 weeks gestation?? GBS negative? Patient is coping well at this time.? Labor type: Spontaneous, Early labor? Category 1 FHR pattern.? complicated by: Elevated 1 hour GTT but normal 3 hr GTT Hx of loss at 17 weeks, baby had Turners Anxiety Hx of thyroiditis Closely spaced pregnancies Plan:?? * ?Admit to L & D? * IV access: none * Monitoring per policy: intermittent? * Candidate for analgesia of choice.? Planning unmedicated may want to use nitrous for pain management * Desires water .? Consent signed and Hep C negative * Expectant management at this time, pt has requested AROM to augment labor. R/B/A reviewed with pt. ? * Patient encouraged to reposition and ambulate to promote physiologic labor and . * Anticipate ? Delivery/Labor/Induction Plan Plan: expectant management OB Exam Physical Exam Vital signs: Temp Resp Pulse Ox 97.6 F 16 98 07/11/25 16:01 07/11/25 16:01 07/11/25 15:25 Narrative: Vitals Reviewed Constitutional:? Alert and oriented x3 HEENT:? Normocephalic, atraumatic Neck:? Supple Lungs:? Clear to auscultation bilaterally Heart:? Regular rate and rhythm, no murmur, rub or gallop Abdomen:? Soft, nontender, and gravid. Vertex by Bret's, confirmed with cervical exam. Extremities:? No edema or erythema Cervix: 3.5 cm/70%/-2 station/vertex NST: 130 bpm/moderate variability/+accelerations/-decelerations/moderate contractions AROM at 1901 small amount of clear fluid Detailed Labor and Delivery Exam Patient Gravid: yes
[2025-07-11 20:34] LABS: Hematocrit* 36.7 % (33.0-51.0); Hemoglobin* 12.8 gm/dL (12.0-16.0); Immature Granulocytes Abs Auto 0.03 K/uL (0.00-0.30); Immature Granulocytes Pct Auto 0.3 %; Lymphocytes Absolute Auto 2.26 K/uL (0.90-2.90); Mean Corpuscular HGB Conc 35 gm/dL (32-36); Mean Corpuscular Hemoglobin 31 pg (26-34); Mean Corpuscular Volume 89 fL (80-100); RDW Coefficient of Variation % 12.3 % (11.5-15.5); Red Blood Count* 4.12 m/uL (4.00-5.20); White Blood Count* 9.14 K/uL (4.50-11.00)
[2025-07-11 20:46] LABS: Slide Review Reflex No
[2025-07-12] VITALS (28 sets, daily range): BP systolic 97–155; BP diastolic 53–70; PULSE 63–122; RESP 14–20; TEMP 36.4–37.1; O2SAT 97–100
--- NOTE | 2025-07-12 00:51 | PM.OBPNL ---
Subjective Time Seen by Provider: 00:51 Date Seen: 07/12/25 Narrative: ?Aniya is coping with labor pain/contractions. ?Terrell and her Mom are with her for support. ?She was using nitrous in the tub for comfort and pain management. Recently requesting IV Fentanyl for pain so was transferred to the bed. Has been having strong contractions for the last 4 hours. ?Now requesting an ITN for pain. Is spontaneously pushing with some contractions Objective Exam: VSS, afebrile General Appearance:? Calm, cooperative. ?No acute distress. ? Psychiatric Exam: Alert and oriented, appropriate affect Abdomen: Gravid Ctx: ?Q 3-6 min apart. ? ? ?Strong FHTs: ?Baseline: 135. ? ? Variability: moderate. ?Accels: -. ? ?Decels: ?variables. SVE: /-2 Membranes: ?AROM clear fluid Vital Signs: Last Vital Signs Temp 97.9 F 07/12/25 00:00 Pulse 84 07/12/25 00:00 Resp 20 07/12/25 00:00 BP 123/70 07/12/25 00:00 Pulse Ox 98 07/11/25 15:25 Plan Plan: Assessment:?? at 40.6 weeks gestation?? GBS neg Patient is coping with challenges of labor.?? Labor type: Augmented, Active labor? Category 2 FHR pattern.? complicated by: Elevated 1 hour GTT but normal 3 hr GTT Hx of loss at 17 weeks, baby had Turners Anxiety Hx of thyroiditis Closely spaced pregnancies Labor complicated by: none Plan:?? ITN per anesthesia Continue with routine intrapartum cares as ordered.?? Patient encouraged to move and change positions to promote physiologic labor and .?? Nonpharmacologic comfort measures per patient preference. Candidate for analgesia of choice if desired. Anticipate progress to NVD. ?
[2025-07-12] MEDS: LACTATED RINGERS 1000 ML 1,000 ML 125 ML IV ×2 (01:00→02:43)
[2025-07-12] MEDS: PHENYLEPHRINE 100 MCG/ML SYRINGE IVP ×3 (01:34→01:50)
--- NOTE | 2025-07-12 01:37 | PM.ANBPRC ---
[facility] Medical History care following vaginal delivery ?Z39.2 - Encounter for routine follow-up (ICD-10) Lactating mother ?Z39.1 - Encounter for care and examination of lactating mother (ICD-10) Stress incontinence ?N39.3 - Stress incontinence (female) (male) (ICD-10) Pelvic floor weakness ?N81.89 - Other female genital prolapse (ICD-10) History of loss ?Z87.59 - Personal history of other complications of , childbirth and the puerperium (ICD-10) Shingles ?B02.9 - Zoster without complications (ICD-10) Lead exposure ?Z77.011 - Contact with and (suspected) exposure to lead (ICD-10) 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, unspecified (ICD-10) Stillbirth with antepartum ?Z37.1 - Single stillbirth (ICD-10) Menieres disease ?H81.09 - Meniere's disease, unspecified ear (ICD-10) Spontaneous vaginal delivery ?O80 - Encounter for full-term uncomplicated delivery (ICD-10) thyroiditis ?O90.5 - thyroiditis (ICD-10) Surgical History History of repair of anterior cruciate ligament of right knee (11/12/22) ?Z98.890 - Other specified postprocedural states (ICD-10) History of anterior cruciate ligament surgery ?Z98.890 - Other specified postprocedural states (ICD-10) [place] teeth extracted ?K08.409 - Partial loss of teeth, unspecified cause, unspecified class (ICD-10) Family History Mother Thyroid disease Sister Denton's disease Social History Narrative: SOCIAL? ? Education: doctorate? ? Work: PT ? ? 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 ? Lives with: Terrell, son, daughter? ? Pets: denies? ? Abuse: Denies past/present ? Special Diet: Denies? ? Ok with a blood transfusion: yes? ? Culture or mu-ism beliefs: denies? RISK FACTORS? ? Exercise Times/wk: cross fit 5 days week. ? ? Depression/Anxiety: anxiety? ? Treatments Currently on Lexapro - 30mg. Therapy: completed KEVIN: 0 PHQ 9: 0? ? Seat Belt Use: Routinely ? Smoking: Denies past/present? ? Alcohol/day: Denies while ? ? Caffeine: 1 cup a day ? ? Drug Use: Denies past/present? What is your current living situation?: I presently have a place to live Problems where you live: no known problems In the past 12 months, utilities in danger of being shut off: no In past 12 months, lack of transportation kept you from medical appts, meetings, work, or getting things needed for daily living: no In the past 12 mos, have been you worried that your food would run out before you had money to buy more?: never true In the past 12 mos, the food you bought just didn't last and you didn't have money to buy more?: never true Smoking Status: Never smoker Do you use any of these nicotine containing products: None Second hand tobacco smoke exposure: No How often do you have a drink containing alcohol: 2-3 times a week AUDIT-C Alcohol total score: 3 How often does anyone, including family, friends and others, physically hurt you: never How often does anyone, including family, friends and others, insult or talk down to you: never How often does anyone, including family, friends and others, threaten you with harm: never How often does anyone, including family, friends and others, scream or curse at you: never Meds Home Medications and Allergies Home Medications ?Medication ?Instructions ?Recorded ?Confirmed ?Type docosahexaenoic acid 200 mg 200 mg PO .QD 08/18/22 07/11/25 History capsule ( DHA) Bacillus coagulans 400 million 1 cell PO DAILY 07/01/23 07/11/25 History cell chewable tablet (Digestive Advantage Probiotics-Prebiotic) escitalopram oxalate 10 mg tablet 10 mg PO QDAY #90 tabs 05/03/24 07/11/25 Rx (Lexapro) aspirin 81 mg chewable tablet 81 mg PO QDAY 01/12/25 07/11/25 History escitalopram oxalate 20 mg tablet 20 mg PO QDAY #90 tabs 05/16/25 07/11/25 Rx (Lexapro) omeprazole 10 mg capsule,delayed 10 mg PO ONCE 06/08/25 07/11/25 History release Allergies Allergy/AdvReac Type Severity Reaction Status Date / Time No Known Drug Allergies Allergy Verified 07/11/25 15:24 Results Labs Labs: Laboratory Results - last 24 hr 07/11/25 07/11/25 15:23 20:25 WBC 9.14 RBC 4.12 Hgb 12.8 Hct 36.7 MCV 89 MCH 31 MCHC 35 RDW Coeff of Jagdeep 12.3 Plt Count 138 L Neut % (Auto) 66.3 Lymph % (Auto) 24.7 Long % (Auto) 8.2 Eos % (Auto) 0.4 Baso % (Auto) 0.1 Neut # (Auto) 6.05 Lymph # (Auto) 2.26 Long # (Auto) 0.70 Eos # (Auto) 0.04 Baso # (Auto) 0.01 Abs Immat Gran (auto) 0.03 Imm/Tot Granulo (auto) 0.3 Membrane Rupture POSITIVE Blood Type A Positive Antibody Screen NEGATIVE Vital Signs Vital Signs: Last Vital Signs Temp 97.9 F 07/12/25 00:00 Pulse 71 07/12/25 01:36 Resp 20 07/12/25 00:00 BP 114/64 07/12/25 01:36 Pulse Ox 97 07/12/25 01:21 Weight: 93.44 kg Height: 160.02 cm Anesthesia Procedures Intrathecal Patient Location: OB Start Time: :15 Stop Time: 01:38 Start Date: 07/12/25 Stop Date: 07/12/25 Reason for Block: procedure for pain Patient Position: sitting Performed By: Jong Franco Preanesthetic Checklist: IV checked, risks and benefits discussed, monitors and equipment checked, pre-op evaluation, timeout performed and anesthesia consent Prep: chlorhexidine gluconate Monitoring: blood pressure monitoring, continuous pulse oximetry and heart rate Approach: midline Vertebral Space: lumbar (1-5) Needle Type: Pencan Injection Technique: single-shot Needle gauge: 25 Needle Length (cm): 10 cm
[2025-07-12] MEDS: CEFAZOLIN 2 GM INJ IVP (02:46)
[2025-07-12] MEDS: AZITHROMYCIN 500 MG in 0.9 % SODIUM CHLORIDE 250 ml 250 ML 255 MG IVPB (02:48)
--- NOTE | 2025-07-12 03:29 | PM.OBPNL ---
Subjective Date Seen: 07/12/25 Narrative: Just prior to her getting comfortable, Emily was spontaneously pushing.?Emily was comfortable after her ITN but in the process of lying her back down in bed her IV came out. After lying her back down in bed approximately 3 minutes after ITN there was a prolonged deceleration down to the 60's with slow return to 90's. An IV was placed urgently for fluid bolus and other potential medications. She was given phenylephedrine twice to increase her blood pressure and a fluid bolus and help into multiple position changes from side to side and hands and knees. She was examined for dilation and found complete. Pushing was attempted over approximately 4 contractions without any movement of station. During this time a FSE was placed due to difficulty tracing FHR. At 0141 decision made to call a Code White and patient was moved to the OR suite on hands and knees on the bed. While in the OR pushing was again attempted but there was no change in station and FHR decelerated to the 60's so pushing was stopped and instructional support services director continued to prepare for emergent C/S until OB building construction contractor arrived. There was marked variability once patient was brought back to the OR. SBAR given to building construction contractor OB and relayed that Emily would like to be examined to see if manual rotation of the head was possible. brine mixer operator OB did examine and determined we should move towards C/S but down graded from Code White to Urgent per her direction. Objective Vital Signs: Last Vital Signs Temp 97.9 F 07/12/25 00:00 Pulse 109 H 07/12/25 01:51 Resp 20 07/12/25 00:00 BP 140/65 H 07/12/25 01:51 Pulse Ox 97 07/12/25 01:21 Plan Plan: Assessment:?? at 40.6 weeks gestation?? GBS neg Patient is coping well with challenges of labor.?? Labor type: Augmented, Active labor? Category 2 FHR pattern.? complicated by: Elevated 1 hour GTT but normal 3 hr GTT Hx of loss at 17 weeks, baby had Turners Anxiety Hx of thyroiditis Closely spaced pregnancies Labor complicated by: Failure to descend, prolonged deceleration, Code White called Plan:?? Consult OB for emergent C/S?
--- NOTE | 2025-07-12 03:50 | W.PM.NB ---
Nerve Block Nerve Block Time Seen by Provider: 04:13 Date Seen: 07/12/25 Type of block requested by surgeon for post-operative analgesia: TAP Side: bilateral Time out performed: Yes Verification of patient name: Yes Verification of date of : Yes Site marking: site marked Name of person performing procedure: Jong Franco Continuous monitoring Was continuous monitoring of O2 sat, B/P, cardiac cath lab technologist, recorded every 15 minutes?: Yes Procedure Checklist: sterile prep, needles and gloves Ultrasound guided. Images saved: Yes Medications given in 5ml increments after negative aspiration: Marcaine %: 0.25 mL: 30 Needle gauge: 20 and Exparel mL: 10 Needle gauge: 20 Patient tolerated procedure well: Yes Additional comments: Injected in 5 mL increments after negative aspiration Block Charges Block Charge (with Pro Fee): TAP Bilateral Use of Ultrasound Machine for Block: Yes- US Guidance/pain block
--- NOTE | 2025-07-12 04:11 | P.OBCN_ITS ---
OB - CN: HPI Date of Consult Date Seen: 07/12/25 Patient: [facility] Patient Consult date: 07/12/25 Requesting Physician: Mickey Orourke CNM Primary Care Provider: Sondra Lancaster CNP Consult Narrative Reason for consult: nonreassuring FHTs Narrative: The patient is a 30 year old G 4 P 2013 at 40 weeks gestation that was admitted to the Center on 07/11/25 for labor. She made good progress in labor, and when she reached 8 cm of dilation she requested and I TN for pain control. Shortly after administration of the intrathecal narcotic, there was a deceleration of the heart rate to the 60s with slow return to the 90s. The patient was repositioned, fluid bolus was administered, and the patient received two doses of phenylephrine due to hypotension. An examination was performed and complete cervical dilatation was noted. The patient began actively pushing with contractions with no descent of the vertex. Occiput posterior position was suspected by the attending automobile brakes bonder. A scalp electrode was placed in heart rate was still in the 60s with pushing. The patient was taken to the operating room and a code white was called. At that time, I was already en route to the hospital. Upon my arrival at 2:18 a.m., I found the patient in hands knees position and heart tones were back into the 120s. History of Present Dating criteria: based on 1st trimester US only care: none Ultrasounds: normal 1st trimester US and normal mid trimester US Medical Complications: # Elevated 1hr GTT at 28wks 04/16/25 * 04/16/25: 210 * Patient desired to do the 3hr GTT as she has no had GDM in her other pregnancies rather than being diagnosed with GDM by her 1hr GTT * 3hr GTT 04/20/25: fasting 87 (70-94), 1hr 201 ((70-179), 2hr 123 (70-154), 3hr 103 (70-139). NO GDM. # Hx of a loss at 17 wks, noted at 20 wk anatomy scan. Baby had Turners # Anxiety Stable on 30 mg Lexapro. # Hx of PP thyroiditis TSH at NOB: 1.810 # Close spaced . Delivered 12/04/23 History History 4 Elective abortions 0 Para 2 Spontaneous abortions 1 Hx # Term Pregnancies 2 Ectopic pregnancies 0 Hx # Pregnancies 0 Multiple births 0 Number of Living Children 2 Past Pregnancies Del. Date GA/Weeks Outcome Route wt Inf Gender Labor Lgth Anesthesia Location Provider [facility] 08/08/21 41 live - full term 8 lb 2 oz Male 22 hrs epi dural Angie Curran 10/15/22 17 spontaneous breech vaginal delivery Female five hours epidural Elvia any Srinivas other 12/04/23 40 live - full term 8 lb Female 22 hrs other Srinivas Delivery Date: 08/08/21 Last Updated by: Melody Conway CNM thyroiditis Delivery Date: 10/15/22 Last Updated by: Heidi Cespedes ~ [employer], [employer] IUFD delivered at 20 5/7 weeks. 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 Delivery Date: 12/04/23 Last Updated by: Melody Conway CNM water Labs Blood type: A (+) positive Rubella: immune RPR/VDLR: nonreactive GBS status: negative HBsAG: negative OB Labs: Lab Assessment Start: 07/11/25 19:46 Freq: ONCE Status: Complete Protocol: PC.OBGBS Activity Type Activity Date Activity User E-sign Co-sign Detail Recorded Client Recorded Date Recorded By Document 07/11/25 19:56 [facility] 07/11/25 19:57 [facility] 07/11/25 19:56 Lab Assessment GBS Status negative GBS Additional Criteria None No Treatment Needed OK Are Labs Available Yes Maternal Blood Type A Maternal RH Factor Positive Evaluate Maternal Rubella Immune Status Immune Hepatitis B Surface Antigen Negative Maternal HIV Status Negative Maternal Syphillis (RPR) Status Negative [facility] Medical History care following vaginal delivery ?Z39.2 - Encounter for routine follow-up (ICD-10) Lactating mother ?Z39.1 - Encounter for care and examination of lactating mother (ICD-10) Stress incontinence ?N39.3 - Stress incontinence (female) (male) (ICD-10) Pelvic floor weakness ?N81.89 - Other female genital prolapse (ICD-10) History of loss ?Z87.59 - Personal history of other complications of , childbirth and the puerperium (ICD-10) Shingles ?B02.9 - Zoster without complications (ICD-10) Lead exposure ?Z77.011 - Contact with and (suspected) exposure to lead (ICD-10) 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, unspecified (ICD-10) Stillbirth with antepartum ?Z37.1 - Single stillbirth (ICD-10) Menieres disease ?H81.09 - Meniere's disease, unspecified ear (ICD-10) Spontaneous vaginal delivery ?O80 - Encounter for full-term uncomplicated delivery (ICD-10) thyroiditis ?O90.5 - thyroiditis (ICD-10) Surgical History History of repair of anterior cruciate ligament of right knee (11/12/22) ?Z98.890 - Other specified postprocedural states (ICD-10) History of anterior cruciate ligament surgery ?Z98.890 - Other specified postprocedural states (ICD-10) [place] teeth extracted ?K08.409 - Partial loss of teeth, unspecified cause, unspecified class (ICD- 10) Family History Mother Thyroid disease Sister Denton's disease Social History Narrative: SOCIAL? ? Education: doctorate? ? 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 ? Lives with: Terrell, son, daughter? ? Pets: denies? ? Abuse: Denies past/present ? Special Diet: Denies? ? Ok with a blood transfusion: yes? ? Culture or gnosticism beliefs: denies? RISK FACTORS? ? Exercise Times/wk: cross fit 5 days week. ? ? Depression/Anxiety: anxiety? ? Treatments Currently on Lexapro - 30mg. Therapy: completed KEVIN: 0 PHQ 9: 0? ? Seat Belt Use: Routinely ? Smoking: Denies past/present? ? Alcohol/day: Denies while ? ? Caffeine: 1 cup a day ? ? Drug Use: Denies past/present? What is your current living situation?: I presently have a place to live Problems where you live: no known problems In the past 12 months, utilities in danger of being shut off: no In past 12 months, lack of transportation kept you from medical appts, meetings, work, or getting things needed for daily living: no In the past 12 mos, have been you worried that your food would run out before you had money to buy more?: never true In the past 12 mos, the food you bought just didn't last and you didn't have money to buy more?: never true Smoking Status: Never smoker Do you use any of these nicotine containing products: None Second hand tobacco smoke exposure: No How often do you have a drink containing alcohol: 2-3 times a week AUDIT-C Alcohol total score: 3 How often does anyone, including family, friends and others, physically hurt you : never How often does anyone, including family, friends and others, insult or talk down to you: never How often does anyone, including family, friends and others, threaten you with harm: never How often does anyone, including family, friends and others, scream or curse at you: never Meds Home Medications and Allergies Home Medications ?Medication ?Instructions ?Recorded ?Confirmed ?Type docosahexaenoic acid 200 mg 200 mg PO .QD 08/18/22 History capsule ( DHA) Bacillus coagulans 400 million 1 cell PO DAILY 3 07/11/25 History cell chewable tablet (Digestive Advantage Probiotics-Prebiotic) escitalopram oxalate 10 mg tablet 10 mg PO QDAY #90 ta bs 05/03/24 07/11/25 Rx (Lexapro) aspirin 81 mg chewable tablet 81 mg PO QDAY 01/12/25 1 History escitalopram oxalate 20 mg tablet 20 mg PO QDAY #90 ta bs 05/16/25 07/11/25 Rx (Lexapro) omeprazole 10 mg capsule,delayed 10 mg PO ONCE 5 07/11/25 History release Allergies Allergy/AdvReac Type Severity Reaction Status Date / Time No Known Drug Allergies Allergy Verified 07/11/25 15:24 OB - H&P: Exam Physical Exam: Vital signs: Temp Pulse Resp BP Pulse Ox 97.9 F 109 H 20 140/65 H 97 07/12/25 00:00 07/12/25 01:51 07/12/25 00:00 07/12/25 01:51 07/12/25 01:21 Detailed Labor and Delivery Exam: Patient Gravid: yes Dilation (cm): 10 Effacement (%): 100 Cervix position: mid Consistency: soft Tachysystole: No Fetus (Single): Station: +1 Position: Other (LOP position) Amniotic Membrane Status: SROM Amniotic Membrane Fluid Description: Clear Heart Rate Baseline: 120 Monitor Accelerations: Present (with exam) Monitor Decelerations: Variable Stitch Cleaner Variability: Moderate (6-25) OB - Results Labs Labs: Short CBC 07/11/25 Range/Units 20:25 WBC 9.14 (4.50-11.00) K/uL Hgb 12.8 (12.0-16.0) gm/dL Hct 36.7 (33.0-51.0) % Plt Count 138 L (140-440) K/uL OB - CN: A/P Assessment and Plan (1) 40 weeks gestation of : Status: Acute (2) Pain during labor: Status: Resolved (3) Second stage labor arrest: Status: Acute (4) bradycardia, antepartum condition or complication: Status: Acute Plan I reviewed the situation after evaluating the monitor strip and the patient. There had been a significant bradycardia, but it was resolved at the time of my arrival. I suspected that the was in an LOP position. The vertex was at too high a station to safely attempt rotation and apply a vacuum, and I concerns that further pushing efforts would precipitate another episode of bradycardia. Because heart tones were improved, I recommended urgent, but not emergent delivery under anesthesia. Informed consent was obtained for the delivery. Following administration of the spinal, heart tones were auscultated and noted to be normal. The patient was prepared and draped in the normal, sterile fashion and delivery was performed. See procedure note.
--- NOTE | 2025-07-12 04:28 | P.OBPRC_ITS ---
Procedure Date of procedure: 07/12/25 Pre-op diagnosis: 1. 40 weeks gestation 2. Arrest of descent 3. bradycardia with pushing efforts following administration of ITN 4. LOP position Post-op diagnosis: same Procedure Done: Global [facility] bill your pro fee for this procedure?: Yes Blood Loss Measurement Type: QBL (1065 mL) Bakri Used: No IV fluids (mL): 1,900 Urine Output (mL): 50 Surgeon: Virginia Magallanes MD Anesthesia Type: Spinal Findings: Live-born male, cephalic presentation, LOP position, Apgars 4, 7 and 8 at 1, 5 and 10 minutes respectively. Short umbilical cord, total length 12.5 cm. Clear amniotic fluid. Normal appearing uterus, tubes, and ovaries. Procedure Name: Primary low transverse section. Procedure Description: The patient had already been moved to the operating room when a code white had been called for bradycardia. heart tones had recovered to the 120s while in the operating room. Informed consent was obtained, spinal anesthesia was administered, and the patient was placed in the dorsal supine position with a leftward tilt. She was prepared and draped in the normal sterile fashion. A Pfannenstiel skin incision was made with a scalpel. This incision was carried down to the underlying layer of fascia with the Bovie. The fascia was incised in the midline and the incision extended laterally. The superior and inferior aspects of the fascial incision were grasped with Scott clamps, elevated and the underlying rectus muscles dissected off sharply and with electrocautery. The rectus muscles were then in the midline. The Ash O retractor was then placed into the incision. The lower uterine segment was then incised in a transverse fashion with the scalpel. Upon entry into the uterus, clear amniotic fluid was noted. The uterine incision was extended laterally with blunt finger fractionation. The infant's head was delivered atraumatically, followed by the remainder of the 's body. The nose and mouth were suctioned with the bulb suction. The cord was doubly clamped and cut, and the infant was handed off the field to Roxanna Sanchez NP for evaluation and resuscitation. Please see her note for details. Cord gases were sent from a segment of the umbilical cord doubly clamped prior to placental delivery. The placenta was delivered spontaneously with umbilical cord traction and fundal massage. The uterus was cleared of all clots and debris. The hysterotomy incision was inspected, and there was an inferior extension noted on the right, approximately 3 cm in length. The extension was reapproximated in a running locking fashion with 0 chromic suture. The remaining uterine incision was reapproximated in a running locking fashion with a 0 chromic suture. A 2nd layer of the same suture was used to imbricate in horizontal fashion. Upon inspection, there was some active bleeding near the right inferior extension closure from a branch of the uterine artery. The vessel was grasped with a DeBakey clamp and cauterized. This did not result in adequate hemostasis, so the vessel was suture ligated with two interrupted sutures of 3-0 chromic. Hemostasis was visualized. The gutters were irrigated and suctioned. Cecille was placed over the raw edges of the bladder reflection and inferior extension. All instruments and retractors were removed. The anterior peritoneum was reapproximated in a running fashion with a 3-0 Vicryl suture. The subfascial tissues were carefully inspected and hemostasis assured. The fascia was reapproximated in a running fashion with a looped 0 Maxon suture. The subcutaneous tissues were copiously irrigated. Hemostasis was assured. The skin was closed in a subcuticular fashion with 4-0 Vicryl. Surgical glue and dressing were applied. A TAP block was administered by anesthesia. The patient tolerated the procedure well. Sponge, lap, needle, and instrument counts were reported as correct x2. The patient was taken to the recovery room, awake, and in stable condition. She did receive 2 grams of IV Ancef and 500 mg IV azithromycin preoperatively and 30 mg IV Toradol at the conclusion of the procedure. Complications: Inferior extension of the hysterotomy incision on the right. Pathology: specimen obtained, sent to pathology (Placenta) Surgery Debrief Performed: Yes Condition: stable Disposition: floor
--- NOTE | 2025-07-12 04:33 | P.ANES_ITS ---
Anesthesia Charges Start Date/Time Anesthesia Start Date: 07/12/25 Anesthesia Start Time: 01:53 Stop Date/Time Anesthesia Stop Date: 07/12/25 Anesthesia Stop Time: 04:21 Summary Emergency: MUSHROOM FARMER Coding CPT Codes CPT Codes: ANES/ANALG CS DELIVER ADD-ON - 12492 ([id number]) P2 - PATIENT W/MILD SYST DISEASE, QZ - MUSHROOM FARMER SVC W/O DOG HANDLER BY Additional Codes: Summary - Emergency: MUSHROOM FARMER ([id number])
--- NOTE | 2025-07-12 04:33 | W.ANESCHARGE ---
Anesthesia Charges Start Date/Time Anesthesia Start Date: 07/12/25 Anesthesia Start Time: 01:53 Stop Date/Time Anesthesia Stop Date: 07/12/25 Anesthesia Stop Time: 04:21 Summary Emergency: MERCURY RECOVERER Coding CPT Codes CPT Codes: ANES/ANALG CS DELIVER ADD-ON - 96651 ([id number]) P2 - PATIENT W/MILD SYST DISEASE, QZ - MERCURY RECOVERER SVC W/O DELINQUENCY PREVENTION SOCIAL WORKER BY Additional Codes: Summary - Emergency: MERCURY RECOVERER ([id number])
[2025-07-12] MEDS: LACTATED RINGERS 1000 ML 1,000 ML 30 ML IV (06:14)
[2025-07-12 08:06] LABS: Hematocrit* 31.4 % (33.0-51.0); Hemoglobin* 10.9 gm/dL (12.0-16.0); Immature Granulocytes Pct Auto 0.3 %; Mean Corpuscular HGB Conc 35 gm/dL (32-36); Mean Corpuscular Hemoglobin 31 pg (26-34); Mean Corpuscular Volume 89 fL (80-100); RDW Coefficient of Variation % 12.4 % (11.5-15.5); Red Blood Count* 3.54 m/uL (4.00-5.20); White Blood Count* 19.35 K/uL (4.50-11.00)
[2025-07-12 08:14] LABS: Immature Granulocytes Abs Auto 0.10 K/uL (0.00-0.30); Lymphocytes Absolute Auto 1.00 K/uL (0.90-2.90); Slide Review Reflex No
[2025-07-12 08:23] LABS: INR 1.08 (0.91-1.10); Prothrombin Time 14.8 Seconds
[2025-07-12] MEDS: ESCITALOPRAM 10 MG TABLET PO (09:55)
[2025-07-12] MEDS: ESCITALOPRAM 10 MG TABLET 20 MG PO (09:55)
[2025-07-12] MEDS: DOCUSATE SODIUM 100 MG CAPSULE PO (09:56)
[2025-07-13 00:33] VITALS: BP 95/64; PULSE 70; RESP 16; TEMP 36.6; O2SAT 98
[2025-07-13 04:20] VITALS: BP 113/64; PULSE 76; RESP 16; TEMP 36.6; O2SAT 98
[2025-07-13 06:30] LABS: Hemoglobin* 9.2 gm/dL (12.0-16.0)
--- NOTE | 2025-07-13 08:55 | PM.OBDSVD1 ---
DS: Providers Provider Date Seen: 07/13/25 Date of admission: 07/11/25 20:06 Primary care physician: Sondra Lancaster CNP Admitting Clinician: Mickey Orourke CNM Consults: 07/12/25 03:46 Consult to Physician [CONS] Routine Comment: Consulting Provider: Virginia Magallanes Has provider been notified: Yes Attending Physician on discharge: Margot Moreira CNM Date of Discharge: 07/13/25 DS: Diagnosis Discharge Diagnosis (1) care and examination of lactating mother: Status: Acute (2) care following delivery: Status: Acute Exam Narrative: Exam Narrative: GENERAL APPEARANCE:? normal affect, alert, no distress MOOD:? appropriate CHEST:? clear to auscultation HEART:? regular rate and rhythm ABDOMEN:? soft, non-tender the uterine fundus is @ Umbilicus, a little off to the right but pt reports she needs to get up and use the BR. Is appropriate for the stage of recovery. EXTREMITIES:? normal and no edema Incision: Healing well, no surrounding erythema, abnormal induration or discharge. ddressing c/d/i Const: Vital Signs, click to edit/add: Vital Signs - 24 hr 07/12/25 12:40 07/12/25 16:15 07/12/25 20:30 Temperature 97.9 F 98.1 F 97.9 F Pulse Rate [Pulse Oximeter] 73 Pulse Rate [Right Blood Pressure Cuf f] 78 68 Respiratory Rate 16 16 16 Blood Pressure [Ri ght Arm] 105/66 104/67 107/70 Pulse Oximetry 98 99 97 Oxygen Delivery Me thod Room Air 07/13/25 00:33 07/13/25 04:20 Temperature 97.9 F 97.8 F Pulse Rate [Pulse Oximeter] 70 76 Pulse Rate [Right Blood Pressure Cuf f] Respiratory Rate 16 16 Blood Pressure [Ri ght Arm] 95/64 113/64 Pulse Oximetry 98 98 Oxygen Delivery Me thod Room Air Room Air Documenting provider has reviewed patient's vital signs: yes Common normals: no apparent distress General appearance: cooperative and comfortable Orientation/consciousness: Yes awake, Yes oriented to person, Yes oriented to place and Yes oriented to time Neuro: Sensorium/orientation: awake, oriented to person, oriented to place and oriented to time OB - DS: Summary Hospital Course Hospital Course: Kenrick is a 30 y.o. G 4 P 3 who was admitted to [facility] for labor. ?She had a section for distress that was uncomplicated. The patient feels well. ?The pain is well controlled with current medications. ?She has no new complaints. ?She is pumping as baby was transferred to NICU at [facility]. the patient has done well.? Vitals have been stable.? She has remained afebrile.? Has a good appetite, is tolerating a general diet. ?She is voiding without difficulty.? She is passing gas and has not had a bowel movement.? She is ambulating and denies any dizziness.? Has small amount of rubra lochia. She is planning condoms and vascectomy for prevention. Discharge home.? Follow up in 2 weeks and 6 weeks.? , may see if needed? Hgb: 9.2. continue with with iron Labs WNL or stable with trending For pain control of perineum, breast and pelvic pain, take 600 mg Ibuprofen every 6 hours as needed by mouth or 1000 mg acetaminophen (Tylenol) every 6 hours by mouth as needed. You can alternate these so you are taking something every 3 hours as needed. A heating pad can also be used for your abdomen or breasts. You may also take docusate sodium up to twice daily to soften your stools and help to prevent constipation. You may wean off of it when your stools return to normal.?Oxycodone prn Problems: none Peripartum Data Laceration description: None Procedures: Procedures Operation Date: 07/12/25 02:45 Actual Procedure Side Surgeon p Low Transverse Section Virginia Magallanes MD complications: none [place] Gender: Male Discharge Plan: nicu Time Spent with Patient Time attestation: Total time spent providing and/or coordinating discharge services: Time spent: Less than 30 minutes Discharge Plan Discharge Disposition: Home, Self-Care Date of Admission: 07/11/25 20:06 Attending Provider on Discharge: margot moreira Consulting Providers: Virginia Magallanes Primary Care Provider: Sondra Lancaster Condition: Stable Anticipated Discharge Date/Time: 07/13/25 12:00 Discharge Medications: New oxycodone 5 mg Tablet 5 - 10 mg PO Q4H PRN (Reason: Pain) Qty: 14 0RF acetaminophen 500 mg Tablet 1,000 mg PO Q6H PRN (Reason: Pain) Qty: 0 0RF docusate sodium 100 mg Capsule 100 mg PO DAILY Qty: 0 0RF ibuprofen 600 mg Tablet 600 mg PO Q6H PRN (Reason: Pain) Qty: 0 0RF Lanolin (HPA) 100 % Cream 1 applic topical Q1H PRNQty: 0 0RF Continued DHA 200 mg capsule 200 mg PO .QD Digestive Advantage Probio-Pre 400 million cell tablet,chewable 1 cell PO DAILY escitalopram oxalate [Lexapro] 10 mg tablet 10 mg PO QDAY Qty: 90 3RF escitalopram oxalate [Lexapro] 20 mg tablet 20 mg PO QDAY Qty: 90 0RF Discontinued omeprazole 10 mg capsule,delayed release(DR/EC) 10 mg PO ONCE aspirin 81 mg tablet,chewable 81 mg PO QDAY Discharge Orders: Discharge Order (Routine); Ordered 07/13/25 Ordered By: Margot Moreira Patient Education: Bupivacaine Liposome (By injection) Activity Level: Activity as Tolerated Discharge Diet: High Fiber Follow Up Appointments: Sondra Lancaster [employer] OFFICE SUPERVISOR [Primary Care Provider, Family Practice] Forms: MyHealth Info Instructions
[2025-07-13] MEDS: DOCUSATE SODIUM 100 MG CAPSULE PO (09:00)
[2025-07-13] MEDS: ACETAMINOPHEN 500 MG TABLET 1000 MG PO (09:00)
[2025-07-13] MEDS: ESCITALOPRAM 10 MG TABLET 30 MG PO (09:01)
[2025-07-13 09:17] VITALS: BP 103/69; PULSE 75; RESP 18; TEMP 36.6; O2SAT 98
--- NOTE | 2025-07-13 12:48 | PC.NURSE ---
Pleasant and cooperative, alert and oriented patient discharged to home ambulatory with . VSS and pt is afebrile. SPO2 maintained >90% on RA. Pain appears well managed with Tylenol and Motrin. Dressing to lower abdomen was removed and incision is well approximated and appears to be healing well. IMMUNOLOGIST with skin glue only. LS CTA. She ate 100% of a regular breakfast without difficulty. Minimal bloody drainage vaginally per pt report. Discharge education was provided including symptoms to report, medications and follow up plan. No further questions asked.
== END 2025-07-13 12:30 | disposition home or self-care (01) | DRG 540 ==
LOC: OB OUT 20:06 → OB 20:06
PROVIDERS: Obstetrics & Gynecology; Admitting Provider Advanced Practice Midwife; PCP Family Medicine; Visit Provider Advanced Practice Midwife
PROC: 10D00Z1 Extraction of Products of Conception, Low, Open Approach (ICD-10-PCS; CPT 59514; principal; 2025-07-12 02:45)
DX: O99.344 Other mental disorders complicating childbirth (principal); F41.9 Anxiety disorder, unspecified; O32.4XX0 Maternal care for high head at term, not applicable or unspecified; O76 Abnormality in fetal heart rate and rhythm complicating labor and delivery; I95.9 Hypotension, unspecified; G89.18 Other acute postprocedural pain; Z37.0 Single live birth; Z3A.40 40 weeks gestation of pregnancy
CPT/HCPCS: 01967; 01968; 36415; 64488; 76942; 84112; 85018; 85025; 85384; 85610; 85730; 86592; 86850; 86900; 86901; 88307; 99140; G0463; A4314; A9270; J0330; J0456; J0665; J0666; J0690; J1100; J1885; J2371; J2405; J2590; J2704; J3010; J7050; J7120

== ENCOUNTER 2025-08-27 11:40 | Outpatient (CLI) | payer BC, SELFPAY | END 2025-08-27 11:41 | disposition home or self-care (01) | LOC: NFLDREF 11:42 | PROVIDERS: PCP Family Medicine; Visit Provider Advanced Practice Midwife | DX: O90.5 Postpartum thyroiditis (principal) | CPT/HCPCS: 84443 ==